=== PATIENT | female | born 1985 | race Caucasian/White ===

== ENCOUNTER 2020-08-15 09:00 | Outpatient (RCR) | payer MEDICAID, SELFPAY ==
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
--- NOTE | 2020-08-15 11:20 | BH.SGPN.GN ---
Behaviors/Verbalizations/Mental Status: []Client alert and oriented, casual dress, hygiene tended to. Eye contact fair. Motor activity appropriate. Speech rapid. Affect constricted, mood anxious and depressed. Thoughts linear, logical, no signs of hallucinations or delusions Client Response/Progress/Benefit: []Client was an active participant AEB client providing input throughout session, taking notes, and completing worksheet. Client attentive during psychoeducation and additional discussion on cognitive distortions. Client stated she most often uses the disqualifying the positives distortion. Client reported this perpetuates the thought I'm not worthy. Client engaged in discussion about how to reframe distorted thoughts into more realistic, rational statements. Client shared her distorted thought is I am not good at anything. Client struggled with reframing the thought and needed help from others. Client seemed to benefit from practicing identifying and reframing distorted thoughts. Client's first day in IOP. To continue IOP to increase healthy coping, improve daily functioning, and prevent decompensation. Narrative Note: []
--- NOTE | 2020-08-15 11:25 | BH.PSY.EVA_ITS ---
Initial Treatment Plan - Patient Information Visit Information: ADMISSION DATE: EXPECTED LOS: 4-6 weeks - Problems/Symptoms Problem #1:: Depression Symptom:: Sadness, anhedonia, low energy, low motivation, decreased concentrati on, guilt, worthlessness, fleeting suicidal ideaton, pasive thoughts Problem #2:: Anxiety Symptom:: Racing thoughts, rumination, panic attacks
--- NOTE | 2020-08-16 09:00 | BH.SGPN.GN ---
Behaviors/Verbalizations/Mental Status: []Client alert and oriented, casual dress, hygiene tended to. Eye contact fair to good. Motor activity appropriate. Speech within normal limits, quiet. Affect constricted, mood depressed and anxious. Thoughts linear, logical, no signs of hallucinations or delusions. Reviewed client?s symptom tracker, no signs of suicidal ideation, plan, or intent as of today. Client Response/Progress/Benefit: []Client second day in IOP tx. She responded well to session, was actively listening and willing to process with group. Client identified emotion today as ?anxious? as she is still adjusting to being in group therapy. Did well to identify current mental health wins which included using calming skills to ease anxiety while making jam with her father, as well as using positive self-talk when things did not go as she had planned. Client reflected that this is progress as she usually would get irritable or upset if things did not go as planned. Shared wanting to work more on further improving her overall ability to manage emotions in the moment and better cope with unexpected change. Client notes current stressor as ongoing struggles with her anxiety. Appeared to benefit from supportive feedback and connecting with others in group. Recommended continued IOP tx to encourage healthy change behaviors, improve mood management, and prevent decompensation. Narrative Note: []
--- NOTE | 2020-08-16 10:03 | BH.SGPN.GN ---
Behaviors/Verbalizations/Mental Status: []Client alert and oriented, casually dressed and groomed. Eye contact fair. Motor activity appropriate. Speech within normal limits. Affect constricted, mood anxious. Thoughts linear, logical, no signs of hallucinations or delusions. Client Response/Progress/Benefit: Client engaged participant AEB pt providing input at times during group session, taking notes and listened attentively to peers. Group discussed healthy versus unhealthy coping skills and what contributes to people using unhealthy skills. The group stated unhealthy coping skills tend to be easy and habitual, temporary relief, and learned behaviors. Client gained awareness of unhealthy coping skills she has used for temporary relief. Client seemed to benefit from increased awareness of importance of increasing healthy coping skills and consequences of utilizing unhealthy coping skills. Client will continue IOP tx to increase healthy coping, improve self-confidence, and prevent decompensation.
--- NOTE | 2020-08-16 11:12 | BH.SGPN.GN ---
Behaviors/Verbalizations/Mental Status: []Client alert and oriented, casually dressed and groomed. Eye contact good. Motor activity appropriate. Speech within normal limits. Affect congruent, mood anxious. Thoughts linear, logical, no signs of hallucinations or delusions Client Response/Progress/Benefit: []Client responded well to session, actively listening and providing examples. Group discussed the different categories of coping skills which included distraction, emotional release, grounding, self-love, and thought challenging. Client participated in creating a coping skills ?menu? from the five categories of coping skills. Client's coping skill menu included: reading, stretching to help with anxiety and tension, mindful music, listing good things she has done, and telling herself thoughts are thoughts not facts. Second day of IOP and appears to be connecting well with peers. Appeared to benefit from increasing repertoire of healthy coping skills. Will continue tx to prevent decompensation, reduce distortions, and improve functioning. Narrative Note: []
--- NOTE | 2020-08-17 08:57 | BH.NA_ITS ---
Physical Data - Vital Signs Pulse Rate: 91 Blood Pressure: 122/86 - Height/Weight Height: 1.57 m Weight:: 102.965 kg - standing scale Weight in Pounds: 227.0 lbs Current Medication Compliance - Medication Compliance Do you take your medication as prescribed?: Yes Nutritional History - Appetite Nutritional Instructions:: If client shows signs of a swallowing problem, weight change of 10 pounds or more in the last month, or is on a diabetic diet, the physician will review and request a dietitian consult, as appropriate. All unintentional weight loss will be referred to the physician for decision on need for dietitian consult. Describe your appetite:: Fair Additional nutritional information:: Client states appetite varies. Functional Assessment - Sleep Pattern Describe any problems with sleeping: Client states she sleeps about 6-8 hours per night. Client states she wakes up frequently. - Activities Motor Activity:: Functional Sensory/Communication Assess - Vision Problems Do you have any vision problems?: Glasses - Communication Problems Do you have difficulty understanding what people are saying?: No What is your primary language?: Ecuad[place] Learning Assessment - Education What is your level of education?: Bachelor Degree Medical Problems/History - Respiratory Conditions Respiratory: Other (See comments) Comments:: sleep apnea- client states she has a pap machine but does not use at this time. - Metabolic Conditions Metabolic: Other (See comments) Comments:: PCOS - Gastrointestinal Conditions Gastrointestinal: Other (See comments) Comments:: IBS - Musculoskeletal Conditions Musculoskeletal: Other (See comments) Comments:: scoliosis - Pain Assessment Do you have acute or chronic pain?: No Surgical History - Surgical History Have you had any surgeries? If so, list type and date:: Yes - tonsilectomy Substance Abuse - Substance Abuse Please describe substance abuse in the last 30 days:: Client denies alcohol, tobacco and substance use. Client states she occasionally drinks caffiene. Mental Status Summary - Mental Status Significant Findings/Observations on Appearance and Mood:: Client is alert and oriented x 4. Client is casually groomed with good hygiene. Client is wearing a mask due to Covid19 pandemic. Client is cooperative with good eye contact. Client's voice regular volume and rate. Client appears mildly anxious. Client has normal processing. Client denies delusions/hallucinations. Client denies SI at this time. Suicide Assessment - Suicidal Ideation Are you currently or have you been suicidal in the past?: Yes - client reports passive thoughts of , denies SI Suicidal Intentional Rating Scale (SIRS): Suicidal thoughts (past) Physician Notification: If Active suicidal thoughts/Will not contract for safety is checked, contact physician and document in the Physician Notification section below. Past Psychiatric History - MH Treatment Hx Past Psychiatric Medications:: amitriptyline, Ativan, Paxil- all short-term Age of first mental health symptoms: Client states she remembers feelings of anxiety as far back as elementary school regarding school (feeling overwhelmed at school, hiding in the bathroom). Client reports depression in high school due to school. Describe (age, circumstance, etc) any past hospitalizations: None. Current providers for mental health treatment (counselor, psychiatrist, manager rn case, etc.): None. Fall Risk Assessment - Age Age: Less than 60 - Mental Status Mental Status: Willing & able to ask for assistance when needed - Physical Status Physical Status: No problems - Impairments Impairments: None - Elimination Elimination: Continent AND independent - Gait or Balance Gait or Balance: Walks independently - Hx of Falls History of falls in the past 6 months: No known history - Medications/Substances Psychotropics:: Antidepressants Medications/substances used within the past 24 hours or ordered to administer: 1-2 of the medications/substances listed above - Total Score Total Points:: 1 RN Summary of Impressions - Impressions Recommendations: Include psychiatric and medical issues, treatment planning recommendations, and discharge planning needs. Impressions: Psychiatric Issues: major depressive disorder, recurrent, severe without psychosis; panic disorder - Level of Care How do the client's current symptoms and functional deficits support need for this level of care?: Client reports feeling she had a mental breakdown around April 2020 while she was in [employer] working. Client states [place] the [place] 2020 and some symptoms have improved. Client states she was so anxious with crying spells and loss of focus that she was unable to do her job in [employer] and her and her employeer parted ways. Client states biggest stressor was work. Client reports feeling irritable, continued crying spells, worthles sness, and decreased energy. Client reports that she was having frequent panic attacks prior [place], and states they are less frequent now but does still have them at times. Client reports last panic attack about 1.5 weeks ago and endorses hyperventalition, crying and headache that go with panic attack. Client denies SI at this time, but reports some passive thoughts about at times. IOP will promote gains and prevent further decompensation while providing social support and skills training.
--- NOTE | 2020-08-17 09:02 | BH.SGPN.GN ---
Behaviors/Verbalizations/Mental Status: []Client alert and oriented, casual dress, hygiene tended to. Eye contact fair. Motor activity appropriate. Speech within normal limits. Affect constricted, mood depressed. Thoughts linear, logical, no signs of hallucinations or delusions. Reviewed client?s symptom tracker, pt denies current suicidal thoughts or intention to date. Client Response/Progress/Benefit: []Pt responded well to session AEB pt openly sharing thoughts and feelings and appeared to listen attentively to others. Pt stated yesterday she had planned to give herself self care time by watching one movie then taking a shower and cleaning. Pt stated she did not reach her goals because she ended up watching two movies and watch [employer] videos. Pt reported she had a little breakdown because she realized she isn't functioning very good. Pt stated a positive is going to spend time with her family for the holidays. Pt seemed to benefit from support from peers. Pt to continue IOP to increase healthy coping, improve daily functioning and prevent decompensation. Narrative Note: []
--- NOTE | 2020-08-17 10:15 | BH.SGPN.GN ---
Behaviors/Verbalizations/Mental Status: []Client alert and oriented, casually dressed and groomed. Eye contact good. Motor activity appropriate. Speech within normal limits. Affect congruent, mood euthymic, anxious. Thoughts linear, logical, no signs of hallucinations or delusions. Client Response/Progress/Benefit: []Client was an engaged participant AEB client taking notes, providing input throughout discussion, and attentively listening to peers. Client connected with group topic of perspective and the impacts of one?s perspective on mental health. She shared that perspective can impact how you approach a situation and become a ?self-fulfilling prophecy? if you allow it to. Worked with group to identify how negative perspective can impact mental health which included: self-fulfilling prophecy, maintain unhealthy mental health cycles, and lead to more negative thinking.?Client contributed as group discussed ways a positive perspective can impact mental health such as: be more willing to keep trying when faced with setbacks, be more open to new experiences and new relationships, as well as improve self-confidence. Client appeared to benefit from increasing understanding of mental health benefits of a positive perspective and potential consequences to progress when perspective is negative. Client will continue IOP tx to prevent decompensation, improve emotional regulation skills, and improve daily functioning. Narrative Note: []
[2020-08-17 10:35] VITALS: BP 122/86; PULSE 91
--- NOTE | 2020-08-17 11:17 | BH.SGPN.GN ---
Behaviors/Verbalizations/Mental Status: []Eye contact is fair. Motor activity is appropriate. Appearance is casual. Speech is Appropriate. Mood is anxious. Affect is congruent. Thoughts are linear and logical. No evidence of psychosis. Client Response/Progress/Benefit: []Client was an active participant in group discussion. Attentive during psychoeducation. Active participant in group discussion on the impact of perspective on how we view ourselves. Client worked with the group to develop a working definition of the term strengths and the importance of recognizing one's strengths. Client was given a worksheet and was asked to tan[place] at least 3 strengths which included: caring, integrity, and love of learning. Group then worked together to identify strategies to remind themselves of their strengths and client selected seeing herself through her supports? perspective as their strategy. Benefited from increased awareness of the role of perspective and strengths in daily mental health wellness. Will continue IOP tx to prevent decompensation, improve mood stability, and reduce distortions. Narrative Note: []
--- NOTE | 2020-08-17 14:59 | BH.MDN_ITS ---
Multi-Disciplinary Note - Note 45-min Individual Time Started:: 12:10 Date: 08/17/20 Purpose of session/treatment goals addressed:: Purpose of session was to assess pt's current symptoms and stressors. Additonal focus on identifying treatment plan goals. Eye Contact:: Fair Motor Activity:: Appropriate Appearance:: Disheveled Speech:: Appropriate Mood:: Anxious, Depressed Affect:: Constricted Thoughts:: Linear, Logical, No evidence of hallucinations/delusions noted Staff Interventions:: Therapist used open ended questions to elicit pt's current symptoms and stressors. Therapist explored what brought pt to IOP. Collaborated [facility] pt to identify treatment goals for IOP. Provided support by using active listening and validating emotions. Client Response:: Pt responded well to session AEB pt sharing thoughts adn feelings. Pt stated she doesn't know who she is, just pretends to be ok. Pt reported being curious if she is on the autism spectrum or if she has ADHD. Pt stated desire to be officially evaluated for one of those diagnoses. Pt identified wanting to learn healthy coping skills, learn how to challenge distorted thoughts and increasing self-care. Pt shared she has used the coping skills of sleeping, hitting leg and hitting head; which she recognizes as unhealthy. Pt stated her goal for the week is to create a morning and night self-care routine. Risks/Concerns:: denies current suicidal ideation, plan or intention to date. Progress Toward Goals/Plan:: No progress noted given pt's first individual session. Session focused on identifiying treatment goals. Pt to continue IOP to increase haelthy coping, improve self-care, and prevent decompensation. Time Stopped:: 12:50
--- NOTE | 2020-08-17 14:59 | BH.MTP ---
Master Treatment Plan - Patient Information Program Physician:: Dr. Foss Primary Therapist:: Rebeca Harrison, [facility] - Psychiatric Diagnoses Psychiatric Diagnoses:: Major depressive disorder, recurrent, severe without psychosis; panic disorder Diagnosis Code(s):: F33.2 - Estimated LOS Estimated LOS (in weeks):: 6 Problem/Goal #1 - Problem/Goal #1 Stated Goal:: Client will reduce depression, feelings of hopelessness and passive thoughts of due to Major Depressive Disorder through Intensive Outpatient Program. Description of Barriers: Pt's low motivation, difficulty concentrating, distorted and negative thought patterns, stress of living with parents, and feelings of worthlessness could all be barriers to treatment. Functional Impact: Pt has history of depression and anxiety who is self-referred to the [facility] behavioral health IOP program for worsening symptoms of depression and anxiety. Patient is currently unemployed. 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. In June 2020 pt returned to the . 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 She feels she had somewhat of an emotional breakdown while in [place] in April 2020 and eventually she was fired but also wanted to quit from her job in [place]. Endorses depressed mood with crying, irritability, mild anhedonia, low energy, low motivation, decreased concentration, feelings of worthlessness and guilt. Pt reported having daily panic attacks while in [place] but hasn?t had a panic attack in 10 days. Endorses passive thoughts of but decrease in frequency. - Objectives Objective #1 Stated Objective: Client will learn and utilize 2-3 healthy coping strategies to manage depressive symptoms. Interventions: Therapist will utilize CBT techniques to assist client with understanding the connection between thoughts, feelings and behaviors. Education will be provided on behavioral activation. Therapist will assist client in learning internal coping strategies to manage depressive symptoms, along with helping client identify triggers. Discharge Criteria: Client will have achieved this goal when can verbalize and practiced at least 2 healthy coping strategies that successfully manage depressive symptoms. Target Date: 09/26/20 Review Date: 09/12/20 Objective #2 Stated Objective: Pt will decrease depressive symptoms AEB pt?s score on the DSM 5 cross-cutting measure and improve pt?s daily functioning. Interventions: Through groups and individual therapy, pt will be provided with education on cognitive distortions, mistaken beliefs, and identifying and combating negative self-talk. Therapist will assist pt with getting back into the activities she once enjoyed as well as increasing healthy coping strategies. Discharge Criteria: Pt will have met this goal when pt?s score on the DSM 5 cross cutting measure for depression has been decreased by 50% and per pt?s report daily functioning has improved. Target Date: 09/26/20 Review Date: 09/12/20 Problem/Goal #2 - Problem/Goal #2 Stated Goal:: Client will reduce overall frequency, intensity, and duration of the anxiety so that daily functioning is not impaired. Description of Barriers: Pt's low motivation, difficulty concentrating, distorted and negative thought patterns, stress of living with parents, and feelings of worthlessness could all be barriers to treatment. Functional Impact: Pt has history of depression and anxiety who is self-referred to the [facility] behavioral health IOP program for worsening symptoms of depression and anxiety. Patient is currently unemployed. 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. In June 2020 pt returned to the . 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 She feels she had somewhat of an emotional breakdown while in [place] in April 2020 and eventually she was fired but also wanted to quit from her job in [facility]. Endorses depressed mood with crying, irritability, mild anhedonia, low energy, low motivation, decreased concentration, feelings of worthlessness and guilt. Pt reported having daily panic attacks while in [place] but hasn?t had a panic attack in 10 days. Endorses passive thoughts of but decrease in frequency. - Objectives Objective #1 Stated Objective: Client will learn and implement 2-3 calming skills to reduce overall anxiety and manage anxiety symptoms. Interventions: Therapist will teach client calming/relaxation skills and assign client homework which practices relaxation skills daily. Discharge Criteria: Client will have achieved this goal when can verbalize at least 2 calming skills and implement those skills. Target Date: 09/26/20 Review Date: 09/12/20 Objective #2 Stated Objective: Pt will decrease anxious symptoms AEB pt?s score on the DSM 5 cross-cutting measure improve pt?s daily functioning. Interventions: Through groups and individual therapy, pt will be provided education about anxiety?s impact on body and common physiological reaction to anxiety. Therapist will teach pt appropriate breathing techniques and build healthy coping skills to manage daily anxieties. Discharge Criteria: Pt will have met this goal when pt?s score on the DSM 5 cross cutting measure for anxiety has decreased by 50% and per pt?s report daily functioning has improved. Target Date: 09/26/20 Review Date: 09/12/20
== END 2020-08-22 23:59 ==
LOC: BHIOP 09:00
PROVIDERS: Referring Provider Psychiatry & Neurology Psychiatry; Visit Provider Psychiatry & Neurology Psychiatry
DX: F33.2 Major depressive disorder, recurrent severe without psychotic features (principal); F41.0 Panic disorder [episodic paroxysmal anxiety]; Z79.899 Other long term (current) drug therapy; E28.2 Polycystic ovarian syndrome; E66.9 Obesity, unspecified
CPT/HCPCS: 90792; H0035; H2012; H2020; 90832

== ENCOUNTER 2020-08-25 09:00 | Outpatient (RCR) | payer MEDICAID, SELFPAY ==
[2015-05-26 13:31] VITALS: BMI 39.4
[2020-08-23 00:45] VITALS: BP 122/86; PULSE 91
--- NOTE | 2020-08-25 09:05 | BH.SGPN.GN ---
Behaviors/Verbalizations/Mental Status: [] Eye contact is good. Motor activity is appropriate. Appearance is casual. Speech is Appropriate. Mood is anxious. Affect is congruent. Thoughts are linear and logical. No evidence of psychosis. Reviewed daily check in sheet and no reports of suicidal ideations or intent. Client Response/Progress/Benefit: [] Pt spoke when prompted. Attentive. Shared that she was sick over the holiday however is feeling better. This is way she is participating virtually. Feels that he body was just stressed for so long than it become overwhelmed leading to illness. Feels that this is a good sign as he body is healing. Reports depressive episode recently and poor sleep, however reports that overall she believes that she has made progress as intensity and frequency of distress has decreased. Benefited from group support and encouragement. Progress noted per pt report. Will continue in IOP to maintain safety, increase coping skills, and stabilize mood. Narrative Note: [] This psychotherapy group was provided via telehealth using two-way, real-time interactive telecommunication technology between the patients and the provider.?The interactive telecommunication technology included audio and video.? ?The patient was offered telemedicine as an option for care delivery during the COVID-19 pandemic and consented to this option. ?Patient location: [place] ?Provider located at [facility]
--- NOTE | 2020-08-25 10:00 | BH.SGPN.GN ---
This psychotherapy group was provided via telehealth using two-way, real-time interactive telecommunication technology between the patients and the provider.?The interactive telecommunication technology included audio and video.? ?The patient was offered telemedicine as an option for care delivery during the COVID-19 pandemic and consented to this option. ?Patient location: [place] ?Provider located at [facility] Behaviors/Verbalizations/Mental Status: []Client alert and oriented, casually dressed and groomed. Eye contact fair. Motor activity appropriate. Speech within normal limits. Affect constricted, mood anxious and dysthymic. Thoughts linear, logical, no signs of hallucinations or delusions. Client Response/Progress/Benefit: []Client active participant as shown by active listening and participating in small group discussion. Client contributed to the discussion of self-care and the consequences of not practicing self-care. Client stated self-care helps one?s physical health and improves energy. Group discussed consequences of not practicing self-care such as: ?downward spiral?, burnout, emotional exhaustion, and poor health. Client participated in the discussion of the common myths about self-care and participated in the discussion on debunking of these myths. Client?s group challenged the myths that self-care takes up too much time and that it is a luxury. Client reports ?I know self-care is important, but I don?t always follow that advice.? Client seemed to benefit from increased awareness of the importance of self-care and challenging common myths that prevent practicing self-care. Will continue IOP tx to prevent decompensation, improve mood stability, and reduce negative thinking. Narrative Note: []
--- NOTE | 2020-08-25 15:03 | BH.MDN ---
Multi-Disciplinary Note - Note 45-min Individual Time Started:: 11:55 Date: 08/25/20 Purpose of session/treatment goals addressed:: Purpose of session was to address goal 1 from master treatment plan. Symptoms/Behavior:: This psychotherapy group was provided via telehealth using two-way, real-time interactive telecommunication technology between the patients and the provider.?The interactive telecommunication technology included audio and video.?. ?The patient was offered telemedicine as an option for care delivery during the COVID-19 pandemic and consented to this option. ?Patient location: [place]. ?Provider located at [facility] Eye Contact:: Fair Motor Activity:: Appropriate Appearance:: Disheveled Speech:: Appropriate Mood:: Anxious, Depressed Affect:: Constricted Thoughts:: Linear, Logical, No evidence of hallucinations/delusions noted Staff Interventions:: Therapist used open ended questions to elicit pt's current symptoms and stressors. Reviewed homework from last session. Assisted pt with identifying strateiges to increase follow through of goals. Collaborated with pt to identify goals for the next week. Client Response:: Pt reported she has been sick for the last few days so has not been able to complete goal from last week of completing morning and nighttime routine. Pt stated she hasn't been able to do much due to not feeling well. Pt stated she was trying to complete her morning routine of washing face, brushing teeth, and doing hair. Pt reported night routine is shower, lotion, brushing teeth and pajamas. Pt stated her goal is to complete morning/night routine and create habit tracker to help her accomplish goal. Pt worked with therapist to identify strategies to increase follow through. Risks/Concerns:: denies suicidal ideation, plan or intention to date. Progress Toward Goals/Plan:: Progress minimal AEB pt reporting not able to do much due to feeling physically sick last few days. Pt reported not able to complete homework from last session. Problems ongoing. Pt to continue IOP to increase healthy coping, improve daily functioning and prevent decmpensation. Time Stopped:: 12:33
--- NOTE | 2020-08-26 09:05 | BH.SGPN.GN ---
Behaviors/Verbalizations/Mental Status: [] Eye contact is good. Motor activity is appropriate. Appearance is neat. Speech is Appropriate. Mood is anxious. Affect is congruent. Thoughts are linear and logical. No evidence of psychosis. Reviewed daily check in sheet and no reports of suicidal thoughts. Client Response/Progress/Benefit: [] Pt spoke when prompted. Attentive. Reports feeling that she is improving both mentally and physically. Believes that she was productive yesterday and feels more confident and hopeful currently than in the past. States I feel I'm more capable of holding down a job. Discussed some recent wins and increased interactions with support. Emotion for today is anxious. Progress noted per pt report. Will continue in IOP to maintain safety, increase healthy coping, and improve functioning. Narrative Note: [] This psychotherapy group was provided via telehealth using two-way, real-time interactive telecommunication technology between the patients and the provider.?The interactive telecommunication technology included audio and video.? ?The patient was offered telemedicine as an option for care delivery during the COVID-19 pandemic and consented to this option. ?Patient location: [place] ?Provider located at [facility]
--- NOTE | 2020-08-26 10:15 | BH.SGPN.GN ---
This psychotherapy group was provided via telehealth using two-way, real-time interactive telecommunication technology between the patients and the provider.?The interactive telecommunication technology included audio and video.? ?The patient was offered telemedicine as an option for care delivery during the COVID-19 pandemic and consented to this option. ?Patient location: [place] ?Provider located at [facility] Behaviors/Verbalizations/Mental Status: []Client alert and oriented, casually dressed and groomed. Eye contact fair. Motor activity appropriate. Speech within normal limits. Affect congruent, mood euthymic. Thoughts linear, logical, no signs of hallucinations or delusions. Client Response/Progress/Benefit: []Pt engaged participant AEB pt providing input at times during discussion, completing worksheet and appearing to actively listen to peers. Appeared to connect with others during discussion about the positives of anxiety. Pt stated she recognizes her anxiety is starting to get bad when she starts to experience physiological symptoms. Pt stated her physical symptoms of anxiety include: pain in back, upset stomach, shaking, tapping, and brain fog. Pt reported pain in her back is when her anxiety is at its worst. Pt seemed to benefit from increased awareness of positive anxiety and recognizing her physical symptoms of anxiety. Pt to continue IOP to increase healthy coping, improve daily functioning, and prevent decompensation. Narrative Note: []
--- NOTE | 2020-08-26 11:15 | BH.SGPN.GN ---
This psychotherapy group was provided via telehealth using two-way, real-time interactive telecommunication technology between the patients and the provider.?The interactive telecommunication technology included audio and video.? ?The patient was offered telemedicine as an option for care delivery during the COVID-19 pandemic and consented to this option. ?Patient location: [place] ?Provider located at [facility] Behaviors/Verbalizations/Mental Status: []Client alert and oriented, casually dressed and groomed. Eye contact fair. Motor activity appropriate. Speech within normal limits. Affect congruent, mood anxious. Thoughts linear, logical, no signs of hallucinations or delusions. Client Response/Progress/Benefit: []Client was an active participant in group discussion and provided insight on group topic. Attentive during psychoeducation on mindfulness coping skills and their impact on personal mental health wellness. Practiced deep breathing, meditation, and PMR with group. Client was able to identify self-soothing and mind-based coping skills client wants to incorporate into current coping skill practice. The skills Client chose to practice were stretching and meditation. Client stated when she is anxious client experiences physical pain, so client hopes stretching will help with this. Appeared to benefit from practicing in the moment coping skills. Progress noted in client?s engagement in group. Will continue IOP tx to prevent decompensation, increase the use of healthy coping skills, and reduce negative thinking. Narrative Note: []
--- NOTE | 2020-08-30 09:10 | BH.SGPN.GN ---
Behaviors/Verbalizations/Mental Status: [] Eye contact is good. Motor activity is appropriate. Appearance is disheveled. Speech is Appropriate. Mood is depressed. Affect is flat. Thoughts are linear and logical. No evidence of psychosis. Reviewed daily check in sheet and no reports of suicidal ideations or intent. Client Response/Progress/Benefit: [] Pt shared when prompted. Attentive. Reports feeling indifferent and disconnected today. Ruminating on past and future events. Ruminating on her symptoms while living in [place] and the reasons that she was not able to function at her job. This led to beleiving that this will happen again in the future. Isolating. Difficulty utilizing skills. Group provided feedback and suggestions to decrease ruminations and focus on the present. No progress noted. Will continue in IOP to improve functioning, stablize mood, and increase health coping skills. Narrative Note: [] This psychotherapy group was provided via telehealth using two-way, real-time interactive telecommunication technology between the patients and the provider.?The interactive telecommunication technology included audio and video.? ?The patient was offered telemedicine as an option for care delivery during the COVID-19 pandemic and consented to this option. ?Patient location: [place] ?Provider located at [facility]
--- NOTE | 2020-08-30 10:20 | BH.SGPN.GN ---
This psychotherapy group was provided via telehealth using two-way, real-time interactive telecommunication technology between the patients and the provider.?The interactive telecommunication technology included audio and video.? ?The patient was offered telemedicine as an option for care delivery during the COVID-19 pandemic and consented to this option. ?Patient location: [place] ?Provider located at [facility] Behaviors/Verbalizations/Mental Status: []Client alert and oriented, casually dressed and groomed. Eye contact fair. Motor activity appropriate. Speech within normal limits. Affect constricted, mood dysthymic. Thoughts linear, logical, no signs of hallucinations or delusions Client Response/Progress/Benefit: []Client was an engaged participant AEB client providing input throughout discussion and listening attentively to others. Client connected with the topic of obstacles and solutions and worked with group to identify common obstacles that keep people stuck. Client shared current reality as being ?jobless, living with my parents, and unsure of who I am.? Client reported she currently feels lost and has a lot of ruminations. Client's realistic, desired reality is to feel sure of herself, have a job, and gain independence back. Group discussed common barriers that keep people stuck to include negative thinking, lack of self-forgiveness, and fear of the unknown. Benefited from group as client was able to identify current and desired mental health state and increase awareness of how barriers can impact progress. Client to continue IOP tx to prevent decompensation, combat negative thinking, and improve daily functioning. Narrative Note: []
--- NOTE | 2020-08-30 15:00 | BH.MDN ---
Multi-Disciplinary Note - Note 45-min Individual Time Started:: 11:32 Date: 08/30/20 Purpose of session/treatment goals addressed:: Purpose of session was to address goal 1 and 2 from master treatment plan. Eye Contact:: Fair Motor Activity:: Appropriate Appearance:: Casual Speech:: Appropriate Mood:: Depressed Affect:: Constricted Thoughts:: Linear, Logical, No evidence of hallucinations/delusions noted Staff Interventions:: Therapist used open ended questions to elicit pt's current symptoms and stressors. Therapist processed ruminating thoughts and fears. Assisted pt with reframing negative thought patterns. Reviewed homework. Discussed barriers to completing homework. Reviewed strateiges to help increase follow through. Client Response:: Pt stated she has been feeling depressed but unable to identify a trigger. Pt reported at night she is having difficutly managing her anxious thought patterns. Expressed lots of worries about what she is going to do about a job. Pt states she doesn't have a real passion which makes it hard to decide on a career path. Pt stated fear that she doesn't have enough experience or education to get a job that she would want. Pt responded well to therapist helping pt identify and challenge distorted thoughts. Pt stated she did not complete goals of completing her morning/night routine and did not create her habit tracker. Pt reported she will try strategy of setting phone alarms to help her remember to complete her habit tracker. Risks/Concerns:: Denies suicidal thoughts, ideation or plan. Progress Toward Goals/Plan:: Decompensation in progress AEB pt reporting increased depressed symptoms and anxious thought patterns. Pt continuing to report low motivation and continues to not complete assigned homework. Pt to continue IOP to increase follow through of skills, challenge distorted thoguhts and prevent further decompensation. Time Stopped:: 12:15
--- NOTE | 2020-08-31 09:05 | BH.SGPN.GN ---
Behaviors/Verbalizations/Mental Status: [] Eye contact is good. Motor activity is appropriate. Appearance is casual. Speech is Appropriate. Mood is anxious. Affect is congruent. Thoughts are linear and logical. No evidence of psychosis. Reviewed daily check in sheet and no reports of suicidal ideations or intent. Client Response/Progress/Benefit: [] Pt participated when prompted. Attentive. She reviewed with the group her feelings of being indifferent and numb yesterday as well as ruminating on previous events. After group she engaged her support in a conversation about the group topics which she reports helped bring her more in the present. Discussed other tasks that she completed yesterday which helped her focus and be more mindful in the present. Insight and awareness of the importance of mindfulness when she is ruminating on the future and past. Group provided feedback and suggestions regarding mindfulness techniques. Progress noted per pt report. Will continue in IOP to improve functioning, prevent decompensation, and to stabilize mood. Narrative Note: [] This psychotherapy group was provided via telehealth using two-way, real-time interactive telecommunication technology between the patients and the provider.?The interactive telecommunication technology included audio and video.? ?The patient was offered telemedicine as an option for care delivery during the COVID-19 pandemic and consented to this option. ?Patient location: [place] ?Provider located at [facility]
--- NOTE | 2020-08-31 11:15 | BH.SGPN.GN ---
This psychotherapy group was provided via telehealth using two-way, real-time interactive telecommunication technology between the patients and the provider.?The interactive telecommunication technology included audio and video.? ?The patient was offered telemedicine as an option for care delivery during the COVID-19 pandemic and consented to this option. ?Patient location: [place] ?Provider located at [facility] Behaviors/Verbalizations/Mental Status: []Client alert and oriented, casual dress, hygiene tended to. Eye contact good. Motor activity appropriate. speech and tone WNL. Affect constricted, mood euthymic. Thoughts linear, logical, no signs of hallucinations or delusions. Client Response/Progress/Benefit: []Client receptive of session, engaged throughout AEB client participating in discussion, asking questions, and listening to others. Client completed a worksheet where client identified personal pitfalls impacting mental health progress. Attentive and contributing during group brainstorm of strategies to overcome pitfalls. Client stated she will work on the pitfalls of procrastination and lack of motivation. Client stated she will work on this by continuing to work on her daily habit tracker which encourages client to do daily self-care. Benefited from identifying personal pitfalls and strategies to overcome these pitfalls. Progress noted today as client reported utilizing coping skills outside of IOP yesterday. Will continue IOP tx to prevent decompensation, improve use of healthy coping skills, and improve daily functioning. Narrative Note: []
--- NOTE | 2020-08-31 12:07 | PCM.BH.PN ---
Progress Note Progress Note: History of Present Illness/Interim History: [] The patient is a 35-year-old female who is seen in follow-up at the [facility] behavioral health IOP program. The patient was last seen 2 weeks ago for worsening symptoms of depression and anxiety. At that time she restarted her Zoloft at a dose of 100 mg daily. The patient feels she is a little better mood [place]. She is still ruminating negatively at times and she says she is still struggling with some of her activities of daily living including showering. The patient states that she has struggled with showering and some personal hygiene issues since she has been in her teens and she feels this is due to poor executive function which she feels she has in common with her who has been diagnosed with ADD. The patient says she does some of her chores in order to please her parents because she is living with them. Patient feels that she does not get a restful deep sleep and that sometimes her dreams wake her up. She does not describe these as nightmares. She is getting about 6 to 8 hours of sleep total and she does lie down during the day but says she does not fall asleep. She denies any panic attacks since I saw her last but she is still somewhat worrisome and anxious at times. She denies any thoughts of self-harm now. She denies any suicidal ideation. Current Psychiatric Medications: [] Valium was discontinued 4 weeks ago after a self wean.; Zoloft 100 mg p.o. daily (x2 weeks now). Mental Status Examination: [] Patient is a 35-year-old female who is seen by telehealth and is wearing a mask due to the pandemic. She is casually dressed and groomed with good hygiene. She has no psychomotor agitation or retardation. She has fair to good eye contact and her speech is normal rate and rhythm and fluent with no pressure. Her mood is depressed and her affect is full and euthymic. Thought process is goal-directed and organized. Thought content: There is no evidence of passive thoughts of and no evidence of thoughts to harm herself. No evidence of suicidal ideation. No evidence of hallucinations, delusions, wilmar or plan for suicide. Insight: Some present. Judgment is intact. Impulsivity: Moderate. Diagnoses: [] Aspen I: [] Major depressive disorder, recurrent, severe without psychosis Aspen II: [] Deferred Aspen III: [] Polycystic ovarian syndrome Aspen IV:[]] Work, job, primary support issues Plan: [] Patient will continue the IOP program at [facility] as the structure, support, education, individual and group therapy will hopefully prevent worsening of the patient's symptoms. She felt safe during the interview and if it anytime she does not feel safe she will let us know or go to the emergency room. The risks, options, possible complications and side effects of the medications were discussed with the patient and she understands accepts these. The patient agrees to increase her sertraline or Zoloft to 150 mg p.o. daily. A prescription was sent in for this increase. I will see the patient in follow-up in several weeks and she will continue to follow-up with her outpatient psychiatric and medical providers. She still is waiting to see an DISPLAY COORDINATOR doctor to restart her control and understands this risks of her Zoloft in .
--- NOTE | 2020-09-06 09:05 | BH.SGPN.GN ---
Behaviors/Verbalizations/Mental Status: [] Eye contact is good. Motor activity is appropriate. Appearance is casual. Speech is Appropriate. Mood is anxious. Affect is congruent. Thoughts are linear and logical. No evidence of psychosis. No reports of suicidal ideations or intent. Client Response/Progress/Benefit: [] Pt participated at times during the group discussion. Emotion for today is hopeful and worried. Shared that she received an ultimatum by her parents on Saturday night basically telling her that her and her need to find jobs and move out within 6 months. Initially this was very upset and overwhelming for patient. States that she ruminated all of Saturday and most of Saturday however was able to pull herself out through skills. Mainly used thought challenging and affirmations. She reports that she is feeling optimistic that she can accomplish goals set forth by her parents. Able to see some positives to the ultimatum in regards to motivation. Progress noted. Benefited from group support, encouragement, and feedback. Will continue in IOP to prevent decompensation, increase healthy coping, and improve functioning. Narrative Note: [] This psychotherapy group was provided via telehealth using two-way, real-time interactive telecommunication technology between the patients and the provider.?The interactive telecommunication technology included audio and video.? ?The patient was offered telemedicine as an option for care delivery during the COVID-19 pandemic and consented to this option. ?Patient location: [place] ?Provider located at [facility]
--- NOTE | 2020-09-06 15:01 | BH.MDN_ITS ---
Multi-Disciplinary Note - Note 60-min Individual Time Started:: 11:25 Date: 09/06/20 Purpose of session/treatment goals addressed:: Addressed goals 1 and 2 from master treatment plan. Eye Contact:: Fair Motor Activity:: Appropriate Appearance:: Casual Speech:: Appropriate Mood:: Anxious Affect:: Congruent Thoughts:: Linear, Logical, No evidence of hallucinations/delusions noted Staff Interventions:: Therapist used open ended questions to elicit pt's current symptoms and stressors. Processed stressor of needing to find a job, helped challenge distorted thoughts. Therapist elicited barriers to pt following through with goals and completing homework. Dixussed progress and areas still need to work on in IOP. Client Response:: Pt stated feeling worried, yet hopeful, about needing to find a job so she can move out of parents house. Pt reported she did panic at first when her mom told her that mom wanted pt and to be moving out in 6 months. Pt stated she misinterpreted what her mom said to mean that pt has to be out in 6 months. Pt stated she now realizes that was not what her mom said but pt castrophized the situation. Pt stated she did look at job openings but only found two jobs she thought she would be able to handle. Pt reported she will work on updating her resume. Pt stated she has been able to complete some of her habit tracker, but admits she continues to struggle with morning/night routine. Pt identified continued low motivation and poor time managment as barriers to accomplishing goals. Discussed strategies to overcome barriers and increase follow through. Identified progress with learning skills with some application of skills. Risks/Concerns:: denies suicidal ideation, plan or intention to date. Progress Toward Goals/Plan:: Progress noted with pt reporting completing some of her habit tracker. Progress with pt being able to identify healthy coping skills and using some of her skills. Pt continues to struggle with depressive and anx ious symptoms. States low motivation as signficiant barrier to progress. Plan is for pt to continue IOP for two more weeks. Pt to continue IOP to increase consistent application of healthy skills, challenge distorted thoughts and prevent decompensation. Time Stopped:: 12:24
--- NOTE | 2020-09-06 15:04 | BH.TPR ---
Treatment Plan Review Date of Admission:: 08/15/20 Date of Treatment Plan Review:: 09/06/20 Admitting Diagnoses:: F33.2 Major depressive disorder, recurrent, severe without psychosis; panic disorder Current Diagnoses:: F33.2 Major depressive disorder, recurrent, severe without psychosis Patient's Response to Treatment:: Pt recently struggling with consistent attendance. Plan was for pt to attend 3 times per week but for last two weeks has only attended 2 times per week. When pt did attend sessions she often provided input and completed in session worksheets. Pt inconsistently completed homework given from individual counseling. Status of Current Problems and Symptoms: Problems ongoing. Pt reporting increased difficulty with ADL's especially with showering and brushing teeth. Pt has created habit tracker but continues to struggle with follow through. Problem #1 Problem Name:: Depression Status of Goals:: Obj 1 - Continued work needed. Pt able to identify at least 2 healthy coping skills to manage depressive symptoms like opposite action and self-care, however continues to struggle with follow through. Obj 2 - DSM 5 unable to get collected at review. Per pt's report in the last couple weeks have noted increased depressive and anxious symptoms with difficutly completing ADL's. Team Recommendations:: Continued work encouraged on goal and objectives. Discuss with pt how to increase consistent attendance. Problem #2 Problem Name:: Anxiety Status of Goals:: Obj 1 - Continued work needed. Pt able to identify at least 2 calming skills to manage anxious symptoms, however continues to struggle with follow through. Obj 2 - DSM 5 unable to get collected at review. Per pt's report in the last couple weeks have noted increased depressive and anxious symptoms with difficutly completing ADL's. Team Recommendations:: Continued work encouraged on goal and objectives. Discuss with pt how to increase consistent attendance.
--- NOTE | 2020-09-09 10:00 | BH.SGPN.GN ---
Behaviors/Verbalizations/Mental Status: []Client alert and oriented, casually dressed and groomed. Eye contact good. Motor activity appropriate. Speech within normal limits. Affect congruent, mood euthymic and anxious. Thoughts linear, logical, no signs of hallucinations or delusions. Client Response/Progress/Benefit: []Client was a passive participant AEB client taking notes and listening to peers, but client declined to contribute to discussion. Client attentive as the group identified consequences of not having healthy boundaries. These included: feeling overwhelmed, isolation,poor relationships, and worsening mental health symptoms. Client was attentive during psychoeducation on the different kinds of boundaries. Client seemed to benefit from increased awareness of how poor boundaries can negatively impact mental health. Client reports variable progress as she has been productive some days, but continues to struggle with low motivation and negative thoughts of self. Will continue IOP tx to promote mood stability and improve daily functioning. Narrative Note: []
--- NOTE | 2020-09-13 09:05 | BH.SGPN.GN ---
Behaviors/Verbalizations/Mental Status: [] Appearance. eye contact, and motor activity is unknown as pt did not turn on camera during group. Speech is Appropriate. Mood is depressed. Affect is flat. Thoughts are linear and logical. No evidence of psychosis. Reviewed daily check in sheet and no reports of suicidal thoughts. Client Response/Progress/Benefit: [] Pt spoke only when prompted. Shared increased distress over the past few days. Ruminating again on finding a job and finances. Reports that she is attempting to utilize skills however with little benefit. Not utilizing self-care. Reports I'm taking a step back. Reports her mental health has dropped by the [facility]. Group provided support and encouragement which was beneficial. Regression noted as pt is depressed, not utilizing skills, and again ruminating about same stressors. Will continue in IOP to increase health coping and improve functioning to return to work. Narrative Note: [] This psychotherapy group was provided via telehealth using two-way, real-time interactive telecommunication technology between the patients and the provider.?The interactive telecommunication technology included audio and video.? ?The patient was offered telemedicine as an option for care delivery during the COVID-19 pandemic and consented to this option. ?Patient location: [place] ?Provider located at [facility]
--- NOTE | 2020-09-14 09:03 | BH.SGPN.GN ---
This psychotherapy group was provided via telehealth using two-way, real-time interactive telecommunication technology between the patients and the provider. The interactive telecommunication technology included audio and video. The patient was offered telemedicine as an option for care delivery during the COVID-19 pandemic and consented to this option. Patient location: [place] Provider located at [facility] Behaviors/Verbalizations/Mental Status: []Eye contact is poor. Motor activity is appropriate. Appearance is casual. Speech is Appropriate. Mood is dysthymic. Affect is constricted. Pt reported having a headache. Thoughts are linear and logical. No evidence of psychosis. Client Response/Progress/Benefit: []Pt responded well to session AEB client openly sharing thoughts and feelings and listened attentively to others. Patient stated yesterday was a down day until about after dinner. Patient reported she was able to utilize the skill opposite action by making herself wash and clean her 3 dogs after dinner. Client stated she felt accomplished after doing this task and also use ups action to take a shower. Patient recognized her mood improved after she made herself do things around the house. Patient reported yesterday when she was feeling down she really attempted use some skills in the morning but was unable to improve her mood until later evening. Patient stated currently feeling tired and experiencing a migraine. Progress could be hindered by patient's recent inconsistent attendance to IOP. Patient is to continue IOP level of care to increase healthy coping, challenge negative thoughts, and prevent decompensation. Narrative Note: []
--- NOTE | 2020-09-14 10:10 | BH.SGPN.GN ---
Behaviors/Verbalizations/Mental Status: [] Camera was on and off during 2nd group so unable to determine appearance, eye contact, and motor activity. Speech is Appropriate. Mood is anxious. Affect is congruent. Thoughts are linear and logical. Client Response/Progress/Benefit: [] Pt participated in group activity however did not provide verbal input during group discussions. Attentive during psychoeducation on the stages of change (pre-contemplation, contemplation, preparation, action, and maintain), barriers to make changes, and the benefits of change. Benefited by increasing awareness of the emotions of change as well as benefits and obstacles to making changes. Narrative Note: [] This psychotherapy group was provided via telehealth using two-way, real-time interactive telecommunication technology between the patients and the provider.?The interactive telecommunication technology included audio and video.? ?The patient was offered telemedicine as an option for care delivery during the COVID-19 pandemic and consented to this option. ?Patient location: [place] ?Provider located at [facility]
--- NOTE | 2020-09-18 13:49 | BH.MDN ---
Multi-Disciplinary Note - Note 45-min Individual Time Started:: 10:58 Date: 09/14/20 Purpose of session/treatment goals addressed:: Purpose of session was to assess pt's current symptoms and stressors. Focused on goal 1 from master treatment plan. Eye Contact:: Fair Motor Activity:: Appropriate Appearance:: Disheveled Mood:: Anxious Affect:: Flat Thoughts:: Linear, Logical, No evidence of hallucinations/delusions noted Staff Interventions:: Therapist used open ended questions to elicit pt's current symptoms and stressors. Therapist reviewed healthy coping skills and barriers to using skills. Worked with pt to identify strategies to increase use of healthy coping skills and follow through with routine plan. Elicited pt's goal for the day. Client Response:: Pt reported she has been struggling the last couple of days with increased depression. Pt stated she hasn't been following her habit tracker or doing much personal self-care at all. Pt reported she is feeling unmotivated. Pt stated she has been stressed and anxious about money and needing to find a job. Patient worked with therapist to identify strategies that can help increase pt's motivation and increase follow through. Pt stated her goal is to shower, brush teeth and put on new clothes every morning. Pt reported her goal for today is to do laundry and change bedsheets. Risks/Concerns:: denies suicidal ideation, plan or intention to date. future focused. Progress Toward Goals/Plan:: Progress decompensating AEB pt reporting depressed mood the last few days and not able to utlize healthy coping to manage depressive symptoms. Pt continues to report no motivation and difficulty completing ADL's. Pt is to continue IOP to increase consistent use of healthy coping skills, challenge distorted thoughts, and prevent decompensation. Time Stopped:: 11:37
== END 2020-09-26 14:00 | disposition home or self-care (01) ==
LOC: BHIOP 09:00
PROVIDERS: Referring Provider Psychiatry & Neurology Psychiatry; Visit Provider Psychiatry & Neurology Psychiatry
DX: F33.2 Major depressive disorder, recurrent severe without psychotic features (principal); E28.2 Polycystic ovarian syndrome
CPT/HCPCS: 99214; H0035; H2012; H2020; 90832; 90834; 90837

== ENCOUNTER → 2020-09-12 14:55 | Outpatient (CLI) | payer MEDICAID, SELFPAY ==
[2015-05-26 13:31] VITALS: BMI 39.4
[2020-09-12 18:05] LABS: Absolute Lymphocyte Count 2.59 X10^3/uL (0.83-4.51); Absolute Neutrophil Count 4.2 X10^3/uL (2.0-7.7); Basophil# 0.02 X10^3/uL; Basophil% 0.3 % (0-1); Eosinophil# 0.02 X10^3/uL; Eosinophils% 0.3 % (0-5); Hematocrit 40.8 % (37-47); Hemoglobin 13.8 g/dL (12.0-15.0); Lymphocyte # 2.59 X10^3/ul (4.0); Lymphocyte % 35.1 % (19-41); Mean Corp Hgb Conc 33.8 g/dL (32-36); Mean Corpuscular Hgb 32.2 pg (27.0-32.0); Mean Corpuscular Volume 95.1 fL (81-99); Mean Platelet Vol. 10.5 fl (6.2-12.0); Monocyte# 0.49 X10^3/uL; Monocyte% 6.6 % (0-10); NRBC Flagged by Analyzer 0 % (0-5); Neutrophil # 4.24 X10^3/uL (2.7-7.7); Neutrophil % 57.6 % (47-70); Platelet Count 268 K/mm3 (150-450); RBC Distribution Width CV 13.8 % (11.6-14.6); RBC Distribution Width SD 46.6 fl (35.1-43.9); Red Blood Count 4.29 M/mm3 (4.2-5.4); White Blood Count 7.4 K/mm3 (4.4-11.0)
[2020-09-12 18:18] LABS: Vitamin D,25 Hydroxy 30.2 ng/mL
[2020-09-12 18:27] LABS: ALB/GLOB Ratio 1.1 RATIO (0.9-2.4); AST(SGOT) 21 U/L (15-37); Alanine Aminotransfer ALT/SGPT 29 U/L (13-56); Albumin, Serum 4.1 g/dL (3.2-5.0); Alkaline Phosphatase 64 U/L (45-117); Anion Gap 9 (5-15); BUN 15 mg/dL (7-18); BUN/Creat Ratio 18.8 RATIO (10-20); Chloride 106 mmol/L (98-107); EST Glomerular Filtration Rate 87 mL/min (>60); Est Glom Filt Rate - Afr Amer 105 mL/min (>60); Globulin 3.7 g/dL (2.2-4.2); Glucose 78 mg/dL (74-106); Magnesium 2.1 mg/dL (1.6-2.6); Potassium 3.9 mmol/L (3.5-5.1); Protein, Total 7.8 g/dL (6.4-8.2); Sodium Level 139 mmol/L (136-145)
== END ==
PROVIDERS: PCP Family Medicine; Referring Provider Family Medicine; Visit Provider Family Medicine
DX: R00.2 Palpitations (principal); F41.9 Anxiety disorder, unspecified; E55.9 Vitamin D deficiency, unspecified
CPT/HCPCS: 36415; 80053; 82306; 83735; 84443; 85025

== ENCOUNTER → 2020-10-05 15:50 | Outpatient (CLI) | payer MEDICAID, SELFPAY ==
[2020-09-27 10:29] VITALS: BMI 41.5
[2020-10-05 18:33] LABS: Erythrocyte Sedimentation Rate 23 mm/hr (0-30)
== END ==
PROVIDERS: PCP Family Medicine; Referring Provider Family Medicine; Visit Provider Family Medicine
DX: R00.2 Palpitations (principal); E55.9 Vitamin D deficiency, unspecified
CPT/HCPCS: 36415; 85652; 86140

== ENCOUNTER → 2020-11-09 08:05 | Outpatient (CLI) | payer MEDICAID, SELFPAY ==
[2020-11-03 15:15] VITALS: BMI 42.3
--- NOTE | 2020-11-09 08:15 | ECHOCS_ITS ---
Reason For Study: Palpitations Procedure This was a 2D Doppler, Color Flow transthoracic echocardiogram. The study was technically difficult. Contrast injection was performed. Exam performed in department. Left Ventricle Normal LV size. Left ventricular systolic function is normal. The estimated ejection fraction is 55 %. No evidence for diastolic dysfunction. No regional wall motion abnormalities noted. Right Ventricle Normal RV size. Normal systolic function. Atria Normal left atrium. Normal right atrium. No doppler evidence for ASD. Mitral Valve There is no mitral annular calcification. Normal mitral valve. Trivial mitral valve insufficiency. Tricuspid Valve Normal tricuspid valve. Trivial tricuspid valve insufficiency. Right ventricular systolic pressure estimated to be 20 mmHg. Aortic Valve Trisinus/trileaflet aortic valve. Normal aortic valve. Pulmonic Valve The pulmonic valve is not well visualized. Great Vessels Normal sized aortic root. Pericardium/Pleural No pericardial effusion. Medication Diluted definity 2ml given slow IV push to enhance endocardial definition. MMode/2D Measurements & Calculations LVIDd: 4.8 cm IVSd: 0.88 cm Ao root diam: 2.4 cm LVIDs: 3.4 cm LVPWd: 0.92 cm RVDd: 2.9 cm FS: 28.4 % LAV(MOD-bp): 25.9 ml LVAd ap4: 31.5 cm2 SV(MOD-sp4): 55.3 ml LAV(MOD-bp) Indexed: 12.7 ml/m2 EDV(MOD-sp4): 103.9 ml LAV(MOD-sp2): 24.4 ml EDV(sp4-el): 108.2 ml LAV(MOD-sp4): 26.2 ml LVAs ap4: 19.3 cm2 ESV(MOD-sp4): 48.6 ml ESV(sp4-el): 50.1 ml EF(MOD-sp4): 53.2 % EF(sp4-el): 53.7 % SV(sp4-el): 58.1 ml LA A4 area: 12.5 cm2 LA dimension(2D): 3.7 cm RA A4 area: 13.0 cm2 Doppler Measurements & Calculations MV E max tom: 69.2 cm/sec Lat Peak E' Tom: 16.8 cm/sec Med Peak E' Tom: 12.9 cm/sec MV A max tom: 53.7 cm/sec E/E' lat: 4.1 E/E' med: 5.4 MV E/A: 1.3 Ao V2 max: 135.9 cm/sec LV V1 max: 102.2 cm/sec PA V2 max: 114.7 cm/sec Ao max P.4 mmHg LV V1 max P.2 mmHg Ao V2 mean: 101.3 cm/sec Ao mean P.4 mmHg Ao V2 VTI: 28.8 cm TR max tom: 206.1 cm/sec TR max P.0 mmHg Interpretation Summary The study was technically difficult. Contrast injection was performed. Left ventricular systolic function is normal. The estimated ejection fraction is 55 %. Trivial mitral valve insufficiency. Trivial tricuspid valve insufficiency. Right ventricular systolic pressure estimated to be 20 mmHg. No evidence for diastolic dysfunction. Ordering Physician: Arian Suazo Referring Physician: Moses Ramey Performed By: Shikha Lopez, ROBERTA, RVT
[2020-11-09 10:05] LABS: Cholesterol 225 mg/dL (200); High Density Lipoprotein 54 mg/dL; Triglycerides 299 mg/dL; Very Low Density Lipoprotein 60 mg/dL (5-40)
== END ==
PROVIDERS: PCP Family Medicine; Referring Provider Internal Medicine Cardiovascular Disease; Visit Provider Internal Medicine Cardiovascular Disease
DX: R00.2 Palpitations (principal)
CPT/HCPCS: 36415; 80061; 93225; 93226; 93306; Q9957; A4216; C8929

== ENCOUNTER 2021-01-23 18:13 | Emergency (ER) | payer MEDICAID, SELFPAY ==
[2020-12-27 10:44] VITALS: BMI 43.0
[2021-01-23 18:14] VITALS: BP 132/97; PULSE 78; RESP 16; TEMP 36.4; O2SAT 99; BMI 40.9
--- NOTE | 2021-01-23 20:21 | EDS_ITS ---
HPI History of Present Illness Chief Complaint: Other, Pain/Inj Detail of Chief Complaint: pain all over, headache Informant: patient Onset/Context/Timing Onset: Today Context: - (started w/ panic attack) Timing: Continuous Quality: achy Location: all over - muscles, joints, neck, w/ headache Current Severity: Moderate Maximum Severity: Moderate Worsened by: moving Relieved by: remaining still Associated Symptoms Associated Symptoms: nausea, photophobia Narrative Narrative: Patient states she has a history of chronic pain all over her body, muscles, joints, neck. She ran out of her sertraline 3 days ago, and then today she states she had a panic attack due to feeling worthless. When asked to expound on this she states that her chronic symptoms make it difficult for her to do things and help out with family and around the house, etc., and that made her feel very bad today. As result, she started having a headache, worsening pain all over. She is not suicidal. She has not tried any treatments for any of this today. She has chronic headaches from her neck pain/problems, states that this is similar but with a migraine on top of it. She denies any vision changes or focal neurologic symptoms, she had no major injuries today or try to harm herself. She is also asking for IV fluids, saying that she cried for an hour and may be dehydrated. She also states she did not drink much fluid today. She thinks it may help her feel better. [facility] Medical History Anxiety Depression Major depressive disorder, recurrent severe without psychotic features Migraines Palpitations Panic disorder PCOS (polycystic ovarian syndrome) PCOS (polycystic ovarian syndrome) Pure hypercholesterolemia Scoliosis Home Medications sertraline 150 mg PO DAILY 30 Days #45 tab 08/31/20 [Rx Last Taken Unknown] acetaminophen 500 mg tablet 1,000 mg PO Q6H tab 11/03/20 [History Last Taken Unknown] amitriptyline 10 mg tablet 20 mg PO QHS tab 11/03/20 [History Last Taken Unknown] buspirone 7.5 mg tablet 7.5 mg PO BID 11/03/20 [History Last Taken Unknown] fluticasone propionate 50 mcg/actuation nasal spray,suspension 1 spray INTRANASAL DAILY PRN 11/03/20 [History Last Taken Unknown] metoprolol succinate 25 mg tablet,extended release 24 hr 25 mg PO DAILY #30 tab 11/28/20 [Rx Last Taken Unknown] desogestrel 0.15 mg-ethinyl estradiol 0.03 mg tablet 1 tab PO QDAY #84 tablet 12/27/20 [Rx Last Taken Unknown] aspirin [Aspir-81] 162 mg PO BID 01/23/21 [History Last Taken Unknown] sertraline 150 mg PO DAILY 7 Days #11 tab 01/23/21 [Rx Last Taken Unknown] Allergy/AdvReac Type Severity Reaction Status Date / Time sulfamethoxazole AdvReac Upset Verified 12/27/20 10:45 [From Bactrim] Stomach trimethoprim [From Bactrim] AdvReac Upset Verified 12/27/20 10:45 Stomach Family History Mother Hypertension Hyperlipidemia Father Hypertension Hyperlipidemia Pre-diabetes Aunt Rheumatoid arthritis Grandfather Rheumatoid arthritis Surgical History History of tonsillectomy Social History household members: spouse and other details: parents number of children: 0 current occupational status: unemployed history of recent travel: No sexually active: Yes Smoking Status: Never smoker alcohol intake: never substance use type: does not use caffeine: No what type of physical activity do you participate in: none seatbelt use: always do you feel safe at home: Yes additional social history: - Armin ROS ROS ED Constitutional Constitutional ED: Denies chills or fever(s) Eyes Eyes: Reports photophobia; Denies change in vision or diplopia ENT ENT ED: Denies rhinorrhea or sore throat Cardiovascular Cardiovascular: Denies chest pain or palpitations Respiratory/Chest Respiratory/Chest: Denies cough or dyspnea Gastrointestinal Gastrointestinal: Reports nausea; Denies abdominal pain, diarrhea or vomiting Genitourinary Genitourinary ED: Denies dysuria or hematuria Musculoskeletal Musculoskeletal: Denies back pain Integumentary Denies abscess or rash Neurologic Neurologic: Denies paresthesias or weakness Psychiatric Psychiatric: Reports anxiety and depression; Denies suicidal thoughts EXAM Physical Exam Const Vital Signs: 01/23/21 18:14 01/23/21 21:21 Temperature 97.6 F L Temperature Source Temporal Pulse Rate 78 81 Respiratory Rate 16 16 Blood Pressure 132/97 H 110/65 Blood Pressure Mean 108 80 Pulse Ox 99 100 Oxygen Delivery Method Room Air Positive well nourished and well developed General Appearance ED: well developed and NAD HEENT Reports moist mucous membranes normocephalic and atraumatic Eyes PERRL and EOMs intact bilaterally Eyes Narrative: mild photophobia Neck full ROM and supple Resp normal respiratory effort and clear to auscultation bilaterally Cardio regular rate, regular rhythm and no murmurs Back/Spine no CVA tenderness General Back: other FROM Extremity normal to inspection General Extremety ED: Negative for edema, pulses abnormal or tenderness General Extremity: Negative for edema or pulses abnormal Neuro oriented x3, CN's II-XII intact bilaterally and no sensory deficits noted Sensorium / Orientation: awake and alert Motor Exam: strength 5/5 throughout Psych denies suicidal ideation Appearance: grossly normal, appropriate and well kempt Mood & Affect: depressed Memory / Cognition: memory grossly intact Insight: insight good Judgement: judgement good Skin no rashes or lesions noted and no wounds MDM MDM MDM Narrative Medical decision making narrative: Patient was treated with IV fluids, Reglan, Toradol. On reevaluation she feels much better. She was also given a dose of sertraline, considering the possibility that some of her symptoms are related to some early withdrawal symptoms. She was given a week's refill, she is due to see her doctor in less than a week and she is comfortable with that plan. She states that she has been getting the 100 mg caplets but she is supposed to be getting the 150 mg tablet so she was prescribed those. Discharge Plan Triage Chief Complaint: Other, Pain/Inj ED Provider: Jagjit Doan Dx/Rx/DC Orders Clinical Impression: Headache, migraine, Myalgia, Chronic neck pain, Encounter for medication refill Instructions: ED, Migraine (Classical) Prescriptions: New sertraline 100 mg tablet 150 mg PO DAILY 7 Days Qty: 11 RF: 0 No Action desogestrel-ethinyl estradiol [Apri] 0.15-0.03 mg tablet 1 tab PO QDAY Qty: 84 RF: 3 amitriptyline 10 mg tablet 20 mg PO QHS RF: 0 buspirone 7.5 mg tablet 7.5 mg PO BID RF: 0 fluticasone propionate [Flonase Allergy Relief] 50 mcg/actuation spray,suspension 1 spray INTRANASAL DAILY PRN (Reason: allergies) RF: 0 acetaminophen [Tylenol Extra Strength] 500 mg tablet 1,000 mg PO Q6H RF: 0 aspirin [Aspir-81] 81 mg Tablet,Delayed Release (Dr/Ec) 162 mg PO BID RF: 0 sertraline 100 MG tablet 150 mg PO DAILY 30 Days Qty: 45 RF: 1 metoprolol succinate 25 mg tablet extended release 24 hr 25 mg PO DAILY Qty: 30 RF: 11 Primary Care Provider: Moses Ramey Referrals: Moses Ramey MD [Primary Care Provider] - [facility] appointment Disposition Disposition: Home, self care
[2021-01-23] MEDS: 0.9% Normal Saline 1,000 ML 999 ML IV (20:37)
[2021-01-23] MEDS: Ketorolac 30 MG/ML Syringe IV (20:40)
[2021-01-23] MEDS: Metoclopramide 10 MG/2 ML Vial 5 MG IV (20:41)
[2021-01-23] MEDS: Sertraline 100 MG Tablet 150 MG PO (21:18)
[2021-01-23 21:21] VITALS: BP 110/65; PULSE 81; RESP 16; O2SAT 100
[2021-01-23 22:09] VITALS: BP 112/75; PULSE 74; RESP 16; O2SAT 100
== END 2021-01-23 22:11 | disposition home or self-care (01) ==
PROVIDERS: Emergency Provider Emergency Medicine; PCP Family Medicine
DX: G43.909 Migraine, unspecified, not intractable, without status migrainosus (principal); G89.29 Other chronic pain; F41.9 Anxiety disorder, unspecified; Z76.0 Encounter for issue of repeat prescription; Z79.82 Long term (current) use of aspirin
CPT/HCPCS: 96374; 96375; 99285; J7030; A4216

== ENCOUNTER → 2021-01-26 13:42 | Outpatient (CLI) | payer MEDICAID, SELFPAY ==
[2021-01-23 18:14] VITALS: BMI 40.9
[2021-01-26 15:51] LABS: Erythrocyte Sedimentation Rate 14 mm/hr (0-30)
[2021-01-26 16:07] LABS: CRP 8.71 mg/L (0.0-3.0); Rheumatoid Factor < 10.0 IU/mL (<15)
[2021-01-28 16:23] LABS: ANTINUCLEAR ANTIBODIES DIRECT Negative (Negative)
== END ==
PROVIDERS: PCP Family Medicine; Referring Provider Family Medicine; Visit Provider Family Medicine
DX: M25.50 Pain in unspecified joint (principal)
CPT/HCPCS: 36415; 85652; 86038; 86140; 86431

== ENCOUNTER → 2021-04-11 12:25 | Outpatient (CLI) | payer MEDICAID, SELFPAY ==
[2021-02-02 14:20] VITALS: BMI 40.9
--- NOTE | 2021-04-11 13:00 | MRI_ITS ---
HISTORY: Dysmetria EXAMINATION: MR Brain WO/W Contrast TECHNIQUE: Multiplanar and multisequence MR images of the brain were obtained with and without IV gadolinium. IV Contrast dosage and agent: DOTAREM 21 CC COMPARISON: None FINDINGS: BRAIN PARENCHYMA: No MRI evidence of hemorrhage. No evidence of acute infarct. No intracranial mass or mass effect. No abnormal enhancement. There is preservation of the gaviria/white matter interface. Normal sella turcica, pituitary gland, infundibular stalk, optic chiasm and hypothalamus. The internal auditory canals are patent. Posterior fossa structures are unremarkable. CSF SPACES: Appropriate for age. No hydrocephalus. Basal cisterns are patent. VASCULAR SYSTEM: Normal flow voids in the major intracranial circulation. CALVARIUM, SKULL BASE, PARANASAL SINUSES AND MASTOID AIR CELLS: Clear. No discrete lytic or blastic abnormalities. ORBITS: Both globes, extraocular muscles, optic nerves and retrobulbar fat appear unremarkable. MRI/Brain W/WO Contrast IMPRESSION: Unremarkable pre and post-contrast MRI brain. at 1635 Reported and signed by: Sai Woods MD Electronically Signed: Sai Woods MD at 16:34 EDT Tel , Service support ,
== END ==
PROVIDERS: PCP Family Medicine; Referring Provider Family Medicine; Visit Provider Family Medicine
DX: R27.8 Other lack of coordination (principal)
CPT/HCPCS: 70553; A9575

== ENCOUNTER → 2021-04-28 08:11 | Outpatient (CLI) | payer MEDICAID, SELFPAY ==
[2021-02-02 14:20] VITALS: BMI 40.9
--- NOTE | 2021-04-28 08:15 | RAD_ITS ---
INDICATION: DYSPHAGIA EXAMINATION/TECHNIQUE: Thin liquid barium oral contrast was administered to the patient. Patient was also given a barium pill. Total Fluoroscopic Time: 2.16 minutes of fluoroscopy time AND number of Fluoroscopic Images: 13 fluoroscopic sets OR Radiation dosage index: COMPARISON: None. FINDINGS: The cervical esophagus and swallowing mechanism appear to be normal with no evidence of penetration or aspiration. No masses or strictures are identified. The patient was able swallow barium pill there was a slight hang up in the superior thoracic esophagus at the level of the aortic arch however with a second swallow of water the patient was able to pass this barium pill within the stomach without delay or obstruction. No hiatal hernia or gastroesophageal reflux was seen RAD/Esophagus Single Contrast IMPRESSION: Normal esophagram. Electronically Signed: Moses Owens DO at 9:37 EDT Tel , Service support ,
== END ==
PROVIDERS: PCP Family Medicine; Referring Provider Family Medicine; Visit Provider Family Medicine
DX: R13.10 Dysphagia, unspecified (principal)
CPT/HCPCS: 74220

== ENCOUNTER → 2021-08-23 14:55 | Outpatient (CLI) | payer MEDICAID, SELFPAY ==
[2021-08-23 17:49] LABS: Absolute Neutrophil Count 4.7 X10^3/uL (2.0-7.7); Basophil# 0.03 X10^3/uL; Basophil% 0.4 % (0-1); Eosinophil# 0.02 X10^3/uL; Eosinophils% 0.2 % (0-5); Hematocrit 41.7 % (37-47); Hemoglobin 13.7 g/dL (12.0-15.0); Lymphocyte % 34.4 % (19-41); Mean Corp Hgb Conc 32.9 g/dL (32-36); Mean Corpuscular Volume 94.3 fL (81-99); Mean Platelet Vol. 10.2 fl (6.2-12.0); Monocyte% 7.4 % (0-10); NRBC Flagged by Analyzer 0 % (0-5); Neutrophil # 4.67 X10^3/uL (2.7-7.7); Neutrophil % 57.2 % (47-70); Platelet Count 302 K/mm3 (150-450); RBC Distribution Width CV 13.4 % (11.6-14.6); RBC Distribution Width SD 46.4 fl (35.1-43.9); Red Blood Count 4.42 M/mm3 (4.2-5.4); White Blood Count 8.2 K/mm3 (4.4-11.0)
[2021-08-23 18:07] LABS: ALB/GLOB Ratio 0.8 RATIO (0.9-2.4); AST(SGOT) 10 U/L (15-37); Alanine Aminotransfer ALT/SGPT 22 U/L (13-56); Albumin, Serum 3.2 g/dL (3.2-5.0); Alkaline Phosphatase 57 U/L (45-117); Anion Gap 8 (5-15); BUN 16 mg/dL (7-18); BUN/Creat Ratio 21.5 RATIO (10-20); Calcium,Total 9.1 mg/dL (8.5-10.1); Chloride 110 mmol/L (98-107); Cholesterol 191 mg/dL (200); Creatinine, Serum 0.74 mg/dL (0.55-1.02); EST Glomerular Filtration Rate 94 mL/min (>60); Est Glom Filt Rate - Afr Amer 113 mL/min (>60); Globulin 4.1 g/dL (2.2-4.2); Glucose 103 mg/dL (74-106); High Density Lipoprotein 55 mg/dL; Protein, Total 7.3 g/dL (6.4-8.2); Sodium Level 143 mmol/L (136-145); Triglycerides 271 mg/dL; Very Low Density Lipoprotein 54 mg/dL (5-40)
[2021-08-23 18:08] LABS: Vitamin B12 529 pg/mL (211-911); Vitamin D,25 Hydroxy 22.8 ng/mL
== END ==
PROVIDERS: PCP Family Medicine; Referring Provider Family Medicine; Visit Provider Family Medicine
DX: E66.9 Obesity, unspecified (principal); E53.8 Deficiency of other specified B group vitamins; E55.9 Vitamin D deficiency, unspecified
CPT/HCPCS: 36415; 80053; 80061; 82306; 82607; 85025

== ENCOUNTER 2021-10-05 16:13 | Outpatient (CLI) | payer MEDICAID, SELFPAY ==
[2021-10-05 17:57] LABS: Erythrocyte Sedimentation Rate 21 mm/hr (0-30)
[2021-10-05 17:58] LABS: Absolute Lymphocyte Count 2.44 X10^3/uL (0.83-4.51); Absolute Neutrophil Count 7.1 X10^3/uL (2.0-7.7); Basophil# 0.04 X10^3/uL; Basophil% 0.4 % (0-1); Eosinophil# 0.01 X10^3/uL; Eosinophils% 0.1 % (0-5); Hematocrit 39.8 % (37-47); Hemoglobin 13.2 g/dL (12.0-15.0); Lymphocyte # 2.44 X10^3/ul (0.83-4.51); Mean Corp Hgb Conc 33.2 g/dL (32-36); Mean Corpuscular Hgb 30.8 pg (27.0-32.0); Mean Platelet Vol. 10.1 fl (6.2-12.0); Monocyte# 0.52 X10^3/uL; Monocyte% 5.1 % (0-10); NRBC Flagged by Analyzer 0 % (0-5); Neutrophil # 7.13 X10^3/uL (2.7-7.7); Platelet Count 289 K/mm3 (150-450); RBC Distribution Width CV 13.4 % (11.6-14.6); RBC Distribution Width SD 45.4 fl (35.1-43.9); Red Blood Count 4.28 M/mm3 (4.2-5.4); White Blood Count 10.2 K/mm3 (4.4-11.0)
[2021-10-05 18:43] LABS: AST(SGOT) 13 U/L (15-37); Alanine Aminotransfer ALT/SGPT 22 U/L (13-56); CRP 7.25 mg/L (0.0-3.0); Creatinine, Serum 0.72 mg/dL (0.55-1.02); EST Glomerular Filtration Rate 98 mL/min (>60); Est Glom Filt Rate - Afr Amer 118 mL/min (>60)
[2021-10-06 09:29] LABS: Hepatitis B Surface Antibody Reactive; Hepatitis C Antibody Non-Reactive (Nonreactive)
[2021-10-07 16:20] LABS: Hepatitis A AB, Total Positive (Negative)
[2021-10-24 09:45] LABS: HPV APTIMA, High Risk Negative
== END 2021-10-05 23:59 | disposition short-term general hospital (02) ==
LOC: MFPLAB 16:15
PROVIDERS: Nurse Practitioner Women's Health; PCP Family Medicine; Referring Provider Family Medicine; Visit Provider Internal Medicine Rheumatology
DX: Z00.00 Encounter for general adult medical examination without abnormal findings (principal)
CPT/HCPCS: 36415; 82565; 84450; 84460; 85025; 85652; 86140; 86706; 86708; 86803; 87070; 87205; 87624; 88142

== ENCOUNTER 2021-12-29 08:35 | Outpatient (CLI) | payer MEDICAID, SELFPAY ==
[2021-12-29 10:42] LABS: Absolute Neutrophil Count 4.7 X10^3/uL (2.0-7.7); Basophil# 0.03 X10^3/uL; Basophil% 0.3 % (0-1); Eosinophil# 0.01 X10^3/uL; Eosinophils% 0.1 % (0-5); Hematocrit 39.9 % (37-47); Hemoglobin 13.3 g/dL (12.0-15.0); Lymphocyte % 40.3 % (19-41); Mean Corp Hgb Conc 33.3 g/dL (32-36); Mean Corpuscular Hgb 31.7 pg (27.0-32.0); Mean Corpuscular Volume 95.2 fL (81-99); Mean Platelet Vol. 9.6 fl (6.2-12.0); Monocyte# 0.62 X10^3/uL; Monocyte% 6.9 % (0-10); NRBC Flagged by Analyzer 0 % (0-5); Neutrophil # 4.65 X10^3/uL (2.7-7.7); Neutrophil % 52.1 % (47-70); Platelet Count 273 K/mm3 (150-450); RBC Distribution Width SD 48.7 fl (35.1-43.9); Red Blood Count 4.19 M/mm3 (4.2-5.4); White Blood Count 8.9 K/mm3 (4.4-11.0)
[2021-12-29 11:11] LABS: Vitamin B12 410 pg/mL (211-911); Vitamin D,25 Hydroxy 28.4 ng/mL
[2021-12-29 11:50] LABS: ALB/GLOB Ratio 0.9 RATIO (0.9-2.4); AST(SGOT) 10 U/L (15-37); Alanine Aminotransfer ALT/SGPT 20 U/L (13-56); Albumin, Serum 3.2 g/dL (3.2-5.0); Alkaline Phosphatase 42 U/L (45-117); Anion Gap 6 (5-15); BUN 15 mg/dL (7-18); BUN/Creat Ratio 16.4 RATIO (10-20); Calcium,Total 9.1 mg/dL (8.5-10.1); Chloride 110 mmol/L (98-107); Cholesterol 193 mg/dL (200); Creatinine, Serum 0.92 mg/dL (0.55-1.02); EST Glomerular Filtration Rate 74 mL/min (>60); Est Glom Filt Rate - Afr Amer 89 mL/min (>60); Globulin 3.7 g/dL (2.2-4.2); Glucose 117 mg/dL (74-106); High Density Lipoprotein 63 mg/dL; Potassium 3.4 mmol/L (3.5-5.1); Protein, Total 6.9 g/dL (6.4-8.2); Sodium Level 140 mmol/L (136-145); Triglycerides 193 mg/dL; Very Low Density Lipoprotein 39 mg/dL (5-40)
[2021-12-29 16:21] LABS: Hemoglobin A1c 5.2 % (3.8-5.6)
== END 2021-12-29 23:59 | disposition home or self-care (01) ==
LOC: MFPLAB 08:40
PROVIDERS: PCP Family Medicine; Referring Provider Family Medicine; Visit Provider Family Medicine
DX: R73.09 Other abnormal glucose (principal); E55.9 Vitamin D deficiency, unspecified; E66.9 Obesity, unspecified
CPT/HCPCS: 36415; 80053; 80061; 82306; 82607; 82746; 83036; 85025

== ENCOUNTER → 2022-04-24 | Outpatient (CLI) | payer MEDICAID, SELFPAY ==
[2022-04-24 18:01] LABS: Absolute Lymphocyte Count 2.54 X10^3/uL (0.83-4.51); Absolute Neutrophil Count 5.3 X10^3/uL (2.0-7.7); Basophil# 0.02 X10^3/uL; Basophil% 0.2 % (0-1); Eosinophil# 0.01 X10^3/uL; Eosinophils% 0.1 % (0-5); Hematocrit 40.9 % (37-47); Hemoglobin 13.7 g/dL (12.0-15.0); Lymphocyte # 2.54 X10^3/ul (0.83-4.51); Lymphocyte % 29.5 % (19-41); Mean Corp Hgb Conc 33.5 g/dL (32-36); Mean Corpuscular Hgb 33.3 pg (27.0-32.0); Mean Corpuscular Volume 99.5 fL (81-99); Mean Platelet Vol. 10.1 fl (6.2-12.0); Monocyte# 0.74 X10^3/uL; Monocyte% 8.6 % (0-10); NRBC Flagged by Analyzer 0 % (0-5); Neutrophil # 5.28 X10^3/uL (2.7-7.7); Neutrophil % 61.3 % (47-70); Platelet Count 287 K/mm3 (150-450); RBC Distribution Width CV 14.5 % (11.6-14.6); RBC Distribution Width SD 51.6 fl (35.1-43.9); Red Blood Count 4.11 M/mm3 (4.2-5.4); White Blood Count 8.6 K/mm3 (4.4-11.0)
[2022-04-24 18:10] LABS: Erythrocyte Sedimentation Rate 13 mm/hr (0-30)
[2022-04-24 18:12] LABS: Vitamin B12 485 pg/mL (211-911); Vitamin D,25 Hydroxy 43.3 ng/mL
[2022-04-24 18:49] LABS: ALB/GLOB Ratio 0.9 RATIO (0.9-2.4); AST(SGOT) 20 U/L (15-37); Alanine Aminotransfer ALT/SGPT 28 U/L (13-56); Albumin, Serum 3.3 g/dL (3.2-5.0); Alkaline Phosphatase 44 U/L (45-117); Anion Gap 7 (5-15); BUN 16 mg/dL (7-18); BUN/Creat Ratio 16.8 RATIO (10-20); CRP 5.52 mg/L (0.0-3.0); Calcium,Total 8.7 mg/dL (8.5-10.1); Chloride 111 mmol/L (98-107); Creatinine, Serum 0.95 mg/dL (0.55-1.02); EST Glomerular Filtration Rate 70 mL/min (>60); Est Glom Filt Rate - Afr Amer 85 mL/min (>60); Globulin 3.5 g/dL (2.2-4.2); Glucose 106 mg/dL (74-106); Potassium 3.7 mmol/L (3.5-5.1); Protein, Total 6.8 g/dL (6.4-8.2); Sodium Level 142 mmol/L (136-145)
[2022-04-25 12:41] LABS: Hemoglobin A1c 5.1 % (3.8-5.6)
[2022-04-27 15:18] LABS: Vitamin D 1,25-Dihydroxy 61.1 pg/mL (24.8-81.5)
== END | disposition home or self-care (01) ==
PROVIDERS: PCP Family Medicine; Referring Provider Family Medicine; Visit Provider Family Medicine
DX: M06.09 Rheumatoid arthritis without rheumatoid factor, multiple sites (principal); R79.82 Elevated C-reactive protein (CRP); R76.8 Other specified abnormal immunological findings in serum; E55.9 Vitamin D deficiency, unspecified; E53.8 Deficiency of other specified B group vitamins; G56.03 Carpal tunnel syndrome, bilateral upper limbs; M79.7 Fibromyalgia; M50.30 Other cervical disc degeneration, unspecified cervical region; M41.25 Other idiopathic scoliosis, thoracolumbar region; M51.36 Other intervertebral disc degeneration, lumbar region; M62.830 Muscle spasm of back; M19.071 Primary osteoarthritis, right ankle and foot; M19.072 Primary osteoarthritis, left ankle and foot; Z82.69 Family history of other diseases of the musculoskeletal system and connective tissue; Z82.61 Family history of arthritis; Z87.39 Personal history of other diseases of the musculoskeletal system and connective tissue; Z79.1 Long term (current) use of non-steroidal anti-inflammatories (NSAID); Z79.52 Long term (current) use of systemic steroids; Z79.899 Other long term (current) drug therapy
CPT/HCPCS: 36415; 80053; 82306; 82607; 82652; 82746; 83036; 85025; 85652; 86140; 87086; 87088

== ENCOUNTER → 2022-06-15 | Outpatient (CLI) | payer MEDICAID, SELFPAY ==
--- NOTE | 2022-06-15 09:11 | RAD_ITS ---
EXAM: XR LEFT KNEE, 3 VIEWS CLINICAL INDICATION: Left knee pain. TECHNIQUE: Three views of the left knee. This report was created using re3D report generation technology. COMPARISON: None. FINDINGS: BONES/JOINTS: Unremarkable. No acute fracture. No subluxation. Normal alignment. Preservation of the joint space. No sclerotic or destructive changes observed. SOFT TISSUES: Unremarkable. No soft tissue swelling or gas. No radiopaque foreign body. RAD/Knee 3 Views IMPRESSION: Negative left knee x-rays. Electronically Signed: Mian Cevallos MD at 10:38 EDT ,
--- NOTE | 2022-06-15 09:11 | RAD_ITS ---
EXAM: XR RIGHT KNEE, 3 VIEWS CLINICAL INDICATION: Right knee pain. TECHNIQUE: Three views of the right knee. This report was created using [employer] report generation technology. COMPARISON: None. FINDINGS: BONES/JOINTS: Unremarkable. No acute fracture. No subluxation. Normal alignment. Preservation of the joint space. No sclerotic or destructive changes observed. SOFT TISSUES: Unremarkable. No soft tissue swelling or gas. No radiopaque foreign body. RAD/Knee 3 Views IMPRESSION: Negative right knee x-rays. Electronically Signed: Mian Cevallos MD at 10:39 EDT ,
== END | disposition home or self-care (01) ==
LOC: MTRAD 09:10
PROVIDERS: PCP Family Medicine; Referring Provider Family Medicine; Visit Provider Family Medicine
DX: M25.562 Pain in left knee (principal); M25.561 Pain in right knee
CPT/HCPCS: 73562

== ENCOUNTER → 2022-08-07 | Outpatient (CLI) | payer MEDICAID, SELFPAY ==
[2022-08-07 18:07] LABS: Anion Gap 9 (5-15); BUN 12 mg/dL (7-18); BUN/Creat Ratio 14.7 RATIO (10-20); Calcium,Total 9.4 mg/dL (8.5-10.1); Chloride 109 mmol/L (98-107); Creatinine, Serum 0.82 mg/dL (0.55-1.02); EST Glomerular Filtration Rate 83 mL/min (>60); Est Glom Filt Rate - Afr Amer 101 mL/min (>60); Glucose 95 mg/dL (74-106); Potassium 3.8 mmol/L (3.5-5.1); Sodium Level 141 mmol/L (136-145)
== END | disposition home or self-care (01) ==
LOC: MFPLAB 15:02
PROVIDERS: Nurse Practitioner Family; PCP Family Medicine; Referring Provider Family Medicine; Visit Provider Family Medicine
DX: N20.0 Calculus of kidney (principal)
CPT/HCPCS: 36415; 80048

== ENCOUNTER → 2022-12-19 | Outpatient (CLI) | payer MEDICAID, SELFPAY ==
[2022-12-19 18:15] LABS: Absolute Neutrophil Count 4.4 X10^3/uL (2.0-7.7); Basophil# 0.03 X10^3/uL; Basophil% 0.4 % (0-1); Eosinophil# 0.03 X10^3/uL; Eosinophils% 0.4 % (0-5); Hematocrit 40.7 % (37-47); Hemoglobin 13.3 g/dL (12.0-15.0); Lymphocyte % 36.1 % (19-41); Mean Corp Hgb Conc 32.7 g/dL (32-36); Mean Corpuscular Volume 98.1 fL (81-99); Mean Platelet Vol. 10.2 fl (6.2-12.0); Monocyte# 0.68 X10^3/uL; Monocyte% 8.5 % (0-10); NRBC Flagged by Analyzer 0 % (0-5); Neutrophil # 4.37 X10^3/uL (2.7-7.7); Neutrophil % 54.4 % (47-70); Platelet Count 274 K/mm3 (150-450); RBC Distribution Width CV 13.5 % (11.6-14.6); RBC Distribution Width SD 48.1 fl (35.1-43.9); Red Blood Count 4.15 M/mm3 (4.2-5.4)
[2022-12-19 18:28] LABS: Erythrocyte Sedimentation Rate 13 mm/hr (0-30)
[2022-12-19 18:42] LABS: Vitamin B12 584 pg/mL (211-911); Vitamin D,25 Hydroxy 44.6 ng/mL
[2022-12-19 19:39] LABS: ALB/GLOB Ratio 0.9 RATIO (0.9-2.4); AST(SGOT) 14 U/L (15-37); Alanine Aminotransfer ALT/SGPT 21 U/L (13-56); Albumin, Serum 3.2 g/dL (3.2-5.0); Alkaline Phosphatase 57 U/L (45-117); Anion Gap 6 (5-15); BUN 14 mg/dL (7-18); BUN/Creat Ratio 19.3 RATIO (10-20); CRP 5.32 mg/L (0.0-3.0); Calcium,Total 8.8 mg/dL (8.5-10.1); Chloride 111 mmol/L (98-107); Cholesterol 205 mg/dL (200); Creatinine, Serum 0.72 mg/dL (0.55-1.02); EST Glomerular Filtration Rate 96 mL/min (>60); Est Glom Filt Rate - Afr Amer 116 mL/min (>60); Globulin 3.7 g/dL (2.2-4.2); Glucose 96 mg/dL (74-106); High Density Lipoprotein 63 mg/dL; Potassium 4.2 mmol/L (3.5-5.1); Protein, Total 6.9 g/dL (6.4-8.2); Sodium Level 140 mmol/L (136-145); Triglycerides 163 mg/dL; Very Low Density Lipoprotein 33 mg/dL (5-40)
== END | disposition home or self-care (01) ==
LOC: MFPLAB 15:03
PROVIDERS: PCP Family Medicine; Referring Provider Family Medicine; Visit Provider Family Medicine
DX: M06.09 Rheumatoid arthritis without rheumatoid factor, multiple sites (principal); R79.82 Elevated C-reactive protein (CRP); R76.8 Other specified abnormal immunological findings in serum; E55.9 Vitamin D deficiency, unspecified; M79.7 Fibromyalgia; M50.30 Other cervical disc degeneration, unspecified cervical region; G56.03 Carpal tunnel syndrome, bilateral upper limbs; M41.25 Other idiopathic scoliosis, thoracolumbar region; M51.36 Other intervertebral disc degeneration, lumbar region; M19.071 Primary osteoarthritis, right ankle and foot; M19.072 Primary osteoarthritis, left ankle and foot; M62.830 Muscle spasm of back; Z79.899 Other long term (current) drug therapy; Z79.52 Long term (current) use of systemic steroids
CPT/HCPCS: 36415; 80053; 80061; 82306; 82607; 82746; 85025; 85652; 86140

== ENCOUNTER → 2022-12-26 | Outpatient (CLI) | payer MEDICAID, SELFPAY ==
--- NOTE | 2022-12-26 12:07 | BI_ITS ---
MAMMOGRAPHY - BILATERAL SCREENING REASON FOR EXAM: Female, 37 years old. Routine annual screening examination. PERTINENT HISTORY: Non-contributory. TECHNIQUE: Digital bilateral breast alec (3D mammographic acquisition) in the CC and MLO projections. 2-D mediolateral oblique (MLO) and craniocaudad (CC) views of both breasts were obtained. CAD: Full Field Digital Mammography with Computer Added Detection was performed. COMPARISON: None. Baseline examination. FINDINGS: Breast Composition: There are scattered areas of fibroglandular density. There are no dominant masses or suspicious calcifications. There is asymmetry of breast tissue with more breast tissue is seen in the right breast as compared to the left side. No other significant abnormalities are identified. There has been no significant change since the prior study. BI/SCRN MAMM (CAD)W/ALEC BILAT IMPRESSION: Stable bilateral screening mammogram. Yearly follow-up mammogram recommended. (A) ASSESSMENT CATEGORY: BIRADS Category 2: Benign. A letter regarding these results will be sent to the patient by the facility within 30 days. Approximately 10% of breast cancers are not detected by mammography. A normal mammogram should not delay biopsy of a clinically suspicious abnormality. [id number] Electronically Signed: Byron Velasquez MD at 14:02 EDT ,
== END | disposition home or self-care (01) ==
LOC: OPBI 12:06
PROVIDERS: PCP Family Medicine; Visit Provider Nurse Practitioner Women's Health
DX: Z12.31 Encounter for screening mammogram for malignant neoplasm of breast (principal)
CPT/HCPCS: 77063; 77067

== ENCOUNTER → 2024-05-20 | Outpatient (CLI) | payer MEDICAID, SELFPAY ==
[2024-05-20 18:14] LABS: Absolute Lymphocyte Count 3.13 X10^3/uL (0.83-4.51); Absolute Neutrophil Count 4.8 X10^3/uL (2.0-7.7); Basophil# 0.03 X10^3/uL; Basophil% 0.4 % (0-1); Eosinophil# 0.02 X10^3/uL; Eosinophils% 0.2 % (0-5); Hematocrit 43.2 % (37-47); Hemoglobin 13.7 g/dL (12.0-15.0); Lymphocyte # 3.13 X10^3/ul (0.83-4.51); Lymphocyte % 36.8 % (19-41); Mean Corp Hgb Conc 31.7 g/dL (32-36); Mean Corpuscular Hgb 31.3 pg (27.0-32.0); Mean Corpuscular Volume 98.6 fL (81-99); Mean Platelet Vol. 10.1 fl (6.2-12.0); Monocyte# 0.53 X10^3/uL; Monocyte% 6.2 % (0-10); NRBC Flagged by Analyzer 0 % (0-5); Neutrophil # 4.78 X10^3/uL (2.7-7.7); Neutrophil % 56.2 % (47-70); Platelet Count 253 K/mm3 (150-450); RBC Distribution Width CV 13.2 % (11.6-14.6); RBC Distribution Width SD 48.5 fl (35.1-43.9); Red Blood Count 4.38 M/mm3 (4.2-5.4); White Blood Count 8.5 K/mm3 (4.4-11.0)
[2024-05-20 18:39] LABS: Vitamin B12 294 pg/mL (211-911); Vitamin D,25 Hydroxy 20.4 ng/mL
[2024-05-20 18:44] LABS: AST(SGOT) 28 U/L (15-37); Alanine Aminotransfer ALT/SGPT 38 U/L (13-56); Albumin, Serum 3.6 g/dL (3.2-5.0); Alkaline Phosphatase 61 U/L (45-117); Anion Gap 5 (5-15); BUN 8 mg/dL (7-18); CRP < 2.90 mg/L (0.0-3.0); Calcium,Total 9.1 mg/dL (8.5-10.1); Chloride 106 mmol/L (98-107); Cholesterol 252 mg/dL (200); Creatinine, Serum 0.88 mg/dL (0.55-1.02); EST Glomerular Filtration Rate 76 mL/min (>60); Est Glom Filt Rate - Afr Amer 91 mL/min (>60); Globulin 3.6 g/dL (2.2-4.2); Glucose 81 mg/dL (74-106); High Density Lipoprotein 74 mg/dL; Potassium 4.1 mmol/L (3.5-5.1); Protein, Total 7.2 g/dL (6.4-8.2); Rheumatoid Factor < 10.0 IU/mL (<15); Sodium Level 138 mmol/L (136-145); Triglycerides 160 mg/dL; Very Low Density Lipoprotein 32 mg/dL (5-40)
[2024-05-20 19:01] LABS: Hemoglobin A1c 4.9 % (3.8-5.6)
[2024-05-22 13:08] LABS: ANTINUCLEAR ANTIBODIES DIRECT Negative (Negative)
[2024-05-22 14:10] LABS: Deamidated Gliadin IgA 5 units (0-19); Deamidated Gliadin IgG 2 units (0-19); Endomysial Antibody IgA Negative (Negative); Immunoglobulin A 94 mg/dL (87-352); t-Transglutaminase IgA <2 U/mL (0-3)
== END | disposition home or self-care (01) ==
LOC: MFPLAB 14:49
PROVIDERS: PCP Family Medicine; Visit Provider Family Medicine
DX: M19.90 Unspecified osteoarthritis, unspecified site (principal); R73.09 Other abnormal glucose; E55.9 Vitamin D deficiency, unspecified; R53.83 Other fatigue; E66.9 Obesity, unspecified
CPT/HCPCS: 36415; 80053; 80061; 82306; 82607; 82784; 83036; 83516; 84443; 85025; 86038; 86140; 86255; 86431

== ENCOUNTER 2024-12-17 15:00 | Outpatient (RCR) | payer MEDICAID, SELFPAY ==
--- NOTE | 2024-10-27 18:36 | HP.PTEVAL ---
Patient's Visit Information Visit Information Visit Information: TONI REGAN is a 39 year old F referred to Physical Therapy by Pedro Sr MD with a diagnosis of achilles tenosynovitis. Date of Evaluation: 10/27/24 Physical Therapist: Antoine Vee, DPT, OCS, CSCS Visit Plan Frequency: 2x /Week Duration: 4-6 Weeks Plan: 2x/week for 4-6 weeks IE HEP: gastroc and soleus stretches wall 30 5x daily, ankle circles throughout day, seated heel toe raises 2x10 and towel toe curls 40 both 2-3x/day, also beneefits of heel lift and ROM while sitting. In clinic treat with: 1. US R achilles nonthermal , CFM achilles R, calcaneal mobs, , rollout and stretch gastroc and soleus B, strengthen achilles eccentrically B to HEP, educate on management of condition. Progress to general LE strength ex as tolerated. may use TENS and ice and CFM as needed. Subjective Subjective: B achilles tendonitis R>L. Started prior to June last year. Walking on campus made her notice it. Can walk but not comfortable. Pain is right on the tendon. Hurts to stand after sitting a while. Also worse later in the day is she sits too much. R 3/10 tonite and L is fine tonite. Sleep is OK due to this. Not employed. Spends day at home chores and helping Mom and dad with projects and home schools. Runs errands and can do all these things but they hurt sometime. No regular exercises No active hobbies, reading comfortably. Pain R >L achilles: Pain Intensity (Out of 10): 3 Pain Intensity Range: 0 and 6 Comment: worse with standing and starting to walk Objective Objective: R>L Walks into PT slowly with short steps but likely normal for her and no antalgia. Trasnfer bed and chair I. Steps reciprocally without rail but pain R achilles descnding onto that foot. Tender moderately in midsubstance of R>L achilles, not on insertion adn not into muscle.. AROM Ankle DF 2 degrees B knee straight and 2 knee bent, 60 PF, 30 inv and 18 eversion B. No pain. reflexes 2/3 patella and achilles B. Sensation LE WNL to gross light touch B. strength is 4/5 inv and ev B, 5 DF, and 4+ PF all without pain however heel raise on R is painful but able with both feet on ground. Metatarsals are moving well as is big toe and big toe strength 4+/5 without pain. No tenderness in PF area. Balance/Special Test Scores Lower Extremity Functional Score: 52 Goals Goal 1:: Achilles pain 1/10 at worst and 90% better Goal Time Frame: 4-6 Weeks Goal 2:: LEFS 60 Goal Time Frame: 4-6 Weeks Goal 3:: I appropriate HEP to limit future problems Goal Time Frame: 4-6 Weeks Goal 4:: steps without pain in either achilles Goal Time Frame: 4-6 Weeks Rehabilitation Potential Physical Therapy Diagnosis: R achilles tendonopathy limiting comfortable funciton Rehabilitation Potential: Good Anticipated Interventions Patient/Client Instruction: Educate patient on: Condition and Plan of Care For the Purpose of:: To decrease pain, To increase ROM, To improve nutrient delivery to tissue, To improve muscle performance and motor function, To increase tolerance to activity/condition/position, To improve ability of physical actions for home/community/work/leisure and To improve gait and locomotor functions Therapeutic Exercise to Include: Strength training, Flexibilty training, Passive ROM and Active ROM For the Purpose of:: To decrease pain, To increase ROM, To improve nutrient delivery to tissue, To improve muscle performance and motor function, To increase tolerance to activity/condition/position and To improve gait and locomotor functions Manual Therapy Techniques to Include: Scar massage, Mobilization, Passive ROM and Soft tissue mobilization For the Purpose of:: To decrease pain, To increase ROM, To improve nutrient delivery to tissue, To improve muscle performance and motor function, To increase tolerance to activity/condition/position and To improve health of tissue TENS: Yes Cryotherapy (ice pack, ice massage): Yes Ultrasound (thermal/non thermal): Yes For the Purpose of:: To decrease pain, To decrease swelling/inflammation, To improve nutrient delivery to tissue and To increase oxygenation perfusion Text: Thank you for the opportunity to evaluate your patient. For Medicare and Medicare HMO plans, please review the plan of care and approve it. It will need to be FAXED BACK to us at [phone] for Medicare purposes. For Medicare only, by signing this I certify the plan of care. Please let me know if there are questions or concerns regarding this plan of care. Physician Signature: Date:
--- NOTE | 2024-11-30 14:49 | HP.PTREVAL_ITS ---
Re-Evaluation Intro: Pedro Sr MD, It has been my pleasure to treat TONI REGAN over the last 5 visits for achilles tenosynovitis. Please see the progress note below for an update on the physical therapy plan of care! Subjective Subjective: R achilles was giving pt problems earlier today. [place] like there was a not at the back of my heel. Objective Objective/Function: Pt feeling much better following US tx. No change to exercise prescription or exercise intensity d/t pt missing last week d/t illness. Pt has more difficulty with RLE with SLS balance on foam, this tends to be the weaker leg. Plan Plan Plan: 2x/week for 4-6 weeks IE HEP: gastroc and soleus stretches wall 30 5x daily, ankle circles throughout day, seated heel toe raises 2x10 and towel toe curls 40 both 2-3x/day, also beneefits of heel lift and ROM while sitting. In clinic treat with: 1. US R achilles nonthermal , CFM achilles R, calcaneal mobs, , rollout and stretch gastroc and soleus B, strengthen achilles eccentrically B to HEP, educate on management of condition. Progress to general LE strength ex as tolerated. may use TENS and ice and CFM as needed. Balance/Gait/Functional tests Balance/Special Test Scores Lower Extremity Functional Score: 52 Goals Goals Goal 1:: Achilles pain 1/10 at worst and 90% better Goal Time Frame: 4-6 Weeks Goal 2:: LEFS 60 Goal Time Frame: 4-6 Weeks Goal 3:: I appropriate HEP to limit future problems Goal Time Frame: 4-6 Weeks Goal 4:: steps without pain in either achilles Goal Time Frame: 4-6 Weeks Anticipated Interventions Anticipated Interventions Patient/Client Instruction: Educate patient on: Condition and Plan of Care For the Purpose of:: To decrease pain, To increase ROM, To improve nutrient delivery to tissue, To improve muscle performance and motor function, To increase tolerance to activity/condition/position, To improve ability of physical actions for home/community/work/leisure and To improve gait and locomotor functions Therapeutic Exercise to Include: Strength training, Flexibilty training, Passive ROM and Active ROM For the Purpose of:: To decrease pain, To increase ROM, To improve nutrient delivery to tissue, To improve muscle performance and motor function, To increase tolerance to activity/condition/position and To improve gait and locomotor functions Manual Therapy Techniques to Include: Scar massage, Mobilization, Passive ROM and Soft tissue mobilization For the Purpose of:: To decrease pain, To increase ROM, To improve nutrient delivery to tissue, To improve muscle performance and motor function, To increase tolerance to activity/condition/position and To improve health of tissue TENS: Yes Cryotherapy (ice pack, ice massage): Yes Ultrasound (thermal/non thermal): Yes For the Purpose of:: To decrease pain, To decrease swelling/inflammation, To improve nutrient delivery to tissue and To increase oxygenation perfusion Re-Evaluation Ending Re-evaluation ending: Please do not hesitate to contact me at [phone] by phone or if you have questions or concerns regarding this new plan of care! Sincerely, Antoine Vee, DPT, OCS, CSCS
--- NOTE | 2024-12-17 15:51 | HP.PTDCSUM_ITS ---
Discharge Summary D/C summary: It has been my pleasure to treat TONI REGAN referred by Pedro Sr MD, with the diagnosis of achilles tenosynovitis for a total of 10 visit(s). Discharge Date: 12/17/24 Please see the following information for a summary of their discharge status. Subjective Subjective: Getting better and pretty good. L is 90% good and the right is 75% better but alot better in last week. HEP going well at home, stretching. 0- 3/10, not sure why was worse last week. Nothing scheduled with doctor. Activities are pretty normal. Pain R >L achilles: Pain Intensity (Out of 10): 3 Overall Improvement % Improvement: 80 Objective Objective/Function: walking without antalgia, steps normally today reciprocally with one rail. 5 DF B ankles AROM. heel adn toe walking without deficits. Goals Goal 1:: Achilles pain 1/10 at worst and 90% better Goal Progress: Progressing Goal 2:: LEFS 60 Goal Progress: Progressing Goal 3:: I appropriate HEP to limit future problems Goal Progress: Goal Met Goal 4:: steps without pain in either achilles Goal Progress: Goal Met Plan Plan: d/c to HEP D/C Information Discharge Comments: to continue HEP and contact doctor if situation worsens. d/c sentence: If there are questions or concerns regarding this patient's physical therapy, please feel free to call me at [phone]. Thank you for the referral of this patient. Sincerely, Antoine Vee, DPT, OCS, CSCS Balance/Gait/Functional tests Balance/Special Test Scores Lower Extremity Functional Score: 56 Improvement % Improvement: 80
== END 2024-12-17 19:00 | disposition home or self-care (01) ==
LOC: PT 15:00
PROVIDERS: PCP Family Medicine; Referring Provider Family Medicine; Visit Provider Family Medicine
DX: M65.879 Other synovitis and tenosynovitis, unspecified ankle and foot (principal)
CPT/HCPCS: 97035; 97110; 97140; 97161; 97164; 97530